=== PATIENT | female | born 1945 | race Caucasian/White ===

== ENCOUNTER → 2020-01-09 13:44 | Outpatient (BNVA) | payer MEDICARE, SELFPAY | PROVIDERS: Family Provider Family Medicine; PCP Family Medicine; Referring Provider Licensed Practical Nurse; Visit Provider Psychiatry & Neurology Neurology | DX: M54.5 Low back pain (principal); M79.605 Pain in left leg; M79.604 Pain in right leg; Z87.891 Personal history of nicotine dependence | CPT/HCPCS: 95886; 95909 ==

== ENCOUNTER 2020-01-26 08:30 | Outpatient (CLI) | payer MEDICARE, SELFPAY ==
[2020-01-11 08:35] LABS: INR 0.97 (0.8-1.2)
--- NOTE | 2020-01-26 09:22 | CT_ITS ---
WS: [id number] CT MYELOGRAM LUMBAR SPINE HISTORY: Low back pain TECHNIQUE: Contiguous 2.5 mm axial imaging performed from T12 through the mid sacral level. Bone and soft tissue windows reviewed. Sagittal and coronal reformats are submitted and reviewed. DLP: 1807.[address] scans at [facility] use at least one of these dose optimization techniques: automat ed exposure control; mA and/or kV adjustment per patient size (includes targeted exams where dose is matched to clinical indication); or iterative reconstruction. COMPARISON: MRI lumbar spine 10/12/2019 Mild RIGHT lateral curvature of the lumbar spine. Disc spaces are well preserved. Osteopenia with no fractures. Advanced facet joint arthropathy from L3-4 to L5-S1. Conus tapers normally and ends near t he L1 level. Less than 2 mm anterolisthesis of L4. L1-L2: Mild annular disc bulging with no stenosis. L2-L3: Mild annular disc bulging. No significant stenosis. L3-L4: Moderate annular disc bulging and mild ligamentum flavum hypertrophy. There is very slight enc roachment upon the subarticular recesses. No significant stenosis. L4-L5: Diffuse annular disc bulging and osteophytosis. Advanced facet arthropathy with ligamentum fla vum hypertrophy. Thecal sac is being significantly narrowed in a trefoil diameter. There is at least moderate to severe central with moderate bilateral subarticular recess and mild bilateral foraminal s tenosis. Nerve roots are becoming clumped centrally in the thecal sac due to small caliber thecal sac . L5-S1: Mild annular disc bulging. No significant stenosis. Moderate atherosclerosis within the abdominal aorta. No aneurysm. Prior cholecystectomy. CT/CT lumbar spine w con [id number] IMPRESSION: 1. Mild RIGHT convex curvature lumbar spine with increase in lordosis. 2. Moderate to severe central with moderate bilateral subarticular recess sten osis and mild bilateral foraminal stenosis at L4-5. 3. Minimal disc encroachment of into the subarticular recesses at L3-4.
--- NOTE | 2020-01-26 09:22 | IR_ITS ---
WS: [id number] LUMBAR MYELOGRAM HISTORY: low back pain COMPARISON: None available. FLUOROSCOPY TIME: 1.5 minutes. Procedure, risks and complications were explained to the patient. Risks including bleeding, infection , headaches, allergic reaction and seizures. Consent has been obtained. With the patient in prone position the skin over the lumbar region is cleansed with ChloraPrep and an esthetized with lidocaine. 22-gauge spinal needle is inserted into the thecal sac at the appropriate level determined by fluoroscopy. Omnipaque 240; 12 ml is injected slowly under fluoroscopy with no co mplications. Needle bevel is perpendicular to the longitudinal fibers of the dura. Stylet is reinsert ed prior to removal of the needle. Patient tolerated the procedure well. Patient will proceed to CT f or further evaluation. Degenerative rotoscoliosis with convexity and curvature to the RIGHT. Bones are diffusely osteopenic. L4 anterolisthesis by 2 mm. Facet joint arthropathy is moderate at L4-5 and L5-S1. L4 anterolisthesis by 3.3 mm on upright positioning. With flexion anterolisthesis is 3.9 mm and exten sergei 4.8 mm. IR/IR myelogram sp lumbar [id number] IMPRESSION: 1. Uncomplicated lumbar myelogram. CT lumbar myelogram report to follow. 2. Degenerative rotoscoliosis with convexity to the RIGHT. 3. L4 anterolisthesis by 3.3 mm on upright imaging. No definite instability.
[2020-01-26] MEDS: iohexol 240 mg/mL 50 mL Btl INTRATHECA (10:35)
== END 2020-01-26 08:31 | disposition home or self-care (01) ==
LOC: RADWPI 08:33
PROVIDERS: Family Provider Family Medicine; PCP Family Medicine; Visit Provider Licensed Practical Nurse
DX: M51.17 Intervertebral disc disorders with radiculopathy, lumbosacral region (principal); M48.061 Spinal stenosis, lumbar region without neurogenic claudication; I70.0 Atherosclerosis of aorta; I48.91 Unspecified atrial fibrillation
CPT/HCPCS: 62304; 72120; 72132; 85610

== ENCOUNTER 2020-02-06 06:00 | Outpatient (RCR) | payer MEDICARE, SELFPAY | END 2020-02-20 23:59 | disposition home or self-care (01) | LOC: APT 06:00 | PROVIDERS: Family Provider Family Medicine; PCP Family Medicine; Referring Provider Licensed Practical Nurse; Visit Provider Licensed Practical Nurse | DX: M51.17 Intervertebral disc disorders with radiculopathy, lumbosacral region (principal) | CPT/HCPCS: 97110; 97162 ==

== ENCOUNTER → 2020-02-07 10:15 | Outpatient (BNVA) | payer MEDICARE, SELFPAY | PROVIDERS: Family Provider Family Medicine; PCP Family Medicine; Referring Provider Licensed Practical Nurse; Visit Provider Anesthesiology Pain Medicine | DX: M48.062 Spinal stenosis, lumbar region with neurogenic claudication (principal); M47.816 Spondylosis without myelopathy or radiculopathy, lumbar region; M51.17 Intervertebral disc disorders with radiculopathy, lumbosacral region; M46.00 Spinal enthesopathy, site unspecified; Z79.891 Long term (current) use of opiate analgesic | CPT/HCPCS: 99205 ==

== ENCOUNTER → 2020-02-15 11:39 | Outpatient (BNVA) | payer MEDICARE, SELFPAY | PROVIDERS: Family Provider Family Medicine; PCP Family Medicine; Visit Provider Anesthesiology Pain Medicine | DX: M48.062 Spinal stenosis, lumbar region with neurogenic claudication (principal); M51.17 Intervertebral disc disorders with radiculopathy, lumbosacral region | CPT/HCPCS: 12032; 64483; 64484; 64493; J1040; J2001; J3490 ==

== ENCOUNTER 2020-02-21 06:00 | Outpatient (RCR) | payer MEDICARE, SELFPAY | END 2020-03-21 23:59 | disposition home or self-care (01) | LOC: APT 06:00 | PROVIDERS: Family Provider Family Medicine; PCP Family Medicine; Referring Provider Licensed Practical Nurse; Visit Provider Licensed Practical Nurse | DX: M51.17 Intervertebral disc disorders with radiculopathy, lumbosacral region (principal) | CPT/HCPCS: 97110 ==

== ENCOUNTER → 2020-04-26 09:34 | Outpatient (BNVA) | payer MEDICARE, SELFPAY | PROVIDERS: PCP Family Medicine; Visit Provider Anesthesiology Pain Medicine | DX: M54.5 Low back pain (principal); M51.17 Intervertebral disc disorders with radiculopathy, lumbosacral region | CPT/HCPCS: 64483; 64484; J1040; J2001; J3490 ==

== ENCOUNTER → 2020-06-14 09:23 | Outpatient (BNVA) | payer MEDICARE, SELFPAY | PROVIDERS: PCP Family Medicine; Visit Provider Anesthesiology Pain Medicine | DX: M48.062 Spinal stenosis, lumbar region with neurogenic claudication (principal); M51.17 Intervertebral disc disorders with radiculopathy, lumbosacral region; M47.816 Spondylosis without myelopathy or radiculopathy, lumbar region; M46.00 Spinal enthesopathy, site unspecified | CPT/HCPCS: 99213 ==

== ENCOUNTER → 2020-07-01 12:34 | Outpatient (BNVA) | payer MEDICARE, SELFPAY | PROVIDERS: PCP Family Medicine; Visit Provider Anesthesiology Pain Medicine | DX: M51.17 Intervertebral disc disorders with radiculopathy, lumbosacral region (principal) | CPT/HCPCS: 64483; 64484; J1040; J3490 ==

== ENCOUNTER → 2020-07-15 10:40 | Outpatient (BNVA) | payer MEDICARE, SELFPAY | PROVIDERS: PCP Family Medicine; Visit Provider Anesthesiology Pain Medicine | DX: M48.062 Spinal stenosis, lumbar region with neurogenic claudication (principal); M47.816 Spondylosis without myelopathy or radiculopathy, lumbar region; M51.17 Intervertebral disc disorders with radiculopathy, lumbosacral region; M46.00 Spinal enthesopathy, site unspecified; Z79.891 Long term (current) use of opiate analgesic | CPT/HCPCS: 99213 ==

== ENCOUNTER → 2020-09-03 11:12 | Outpatient (BNVA) | payer MEDICARE, SELFPAY | PROVIDERS: PCP Family Medicine; Visit Provider Family Medicine | DX: K21.9 Gastro-esophageal reflux disease without esophagitis (principal); M79.601 Pain in right arm; M79.602 Pain in left arm | CPT/HCPCS: 80053; 85025; 85651; 86038; 86140; 86431 ==

== ENCOUNTER → 2020-09-23 13:00 | Outpatient (BNVA) | payer MEDICARE, SELFPAY | PROVIDERS: PCP Family Medicine; Visit Provider Surgery | DX: Z20.828 Contact with and (suspected) exposure to other viral communicable diseases (principal) | CPT/HCPCS: 87635 ==

== ENCOUNTER 2020-09-26 08:39 | Day surgery (SDC) | payer MEDICARE, SELFPAY ==
[2020-09-24 10:10] VITALS: BMI 29.1
[2020-09-26] MEDS: sodium chloride 0.9% 1,000 ML 30 ML IV (09:04)
[2020-09-26 09:07] VITALS: BP 178/77; PULSE 67; RESP 18; TEMP 36.9; O2SAT 98
--- NOTE | 2020-09-26 09:24 | W.PM.OPSUD ---
Surgery/Procedure H&P Update DATE OF PROCEDURE: September 26, 2020 DATE H&P PERFORMED: 09/09/20 H&P UPDATE INFORMATION: I have reviewed H&P completed within last 30 days, I have examined patient prior to procedure and No changes to prior documentation PREOP DIAGNOSIS: GERD PLANNED PROCEDURE: Operation Date: 09/26/20 09:30 Proposed Procedures p EGD 74036 K21.9(Not Applicable) - Keven Bravo MD
--- NOTE | 2020-09-26 09:30 | ANES.PREANE2 ---
Pre-Anesthetic Assessment Pre-Anesthetic Assessment: Height/Weight: Height 1.65 m Weight 79.379 kg Temp Pulse Resp BP Pulse Ox 98.4 F 67 18 178/77 98 09/26/20 09:07 09/26/20 09:07 09/26/20 09:07 09/26/20 09:07 09/26/20 09:07 Preop Diagnosis: GERD Proposed Procedure: Operation Date: 09/26/20 09:30 Proposed Procedures p EGD 90068 K21.9(Not Applicable) - Keven Bravo MD Familial anesthetic complications: None Was Beta Mono taken within 24 hours: N/A Last intake: Intake Last Liquid Date 09/25/20 Last Liquid Time 20:00 Last Solid Date 09/25/20 Last Solid Time 20:00 Social: Social History: No alcohol and No tobacco Exam: Pre-Anes Outpt Exam: alert, oriented x 3, clear to auscultation bilaterally and regular rate & rhythm Airway: Cervical ROM: WNL MP: 2 Dentition: False CV/HEM: CV/HEM: Afib, Angina (Stable) and HTN Comments: 2019 stress test - negative fo rishcemia, EF 54% Event holterl monitor - isolated PVCs GI: GI: GERD and Hiatus hernia Anesthetic Plan: ASA status: 2 Anesthesia: MAC Risk of > 500 ml blood loss (7ml/kg in children): No Meds/Allergies Current Medications: Current Medications Generic Name Dose Route Start Last Admin Trade Name Freq PRN Reason Stop Dose Admin Sodium Chloride 1,000 mls @ 30 ml s/hr 09/26/20 08:45 09/26/20 09:04 Sodium Chloride 0.9% IV 09/27/20 08:44 30 mls/hr .Q24H IRA Administration PFSH Anesthesia PFSH: Medical History Atrial fibrillation Essential (primary) hypertension GERD (gastroesophageal reflux disease) Intervertebral disc disorder with radiculopathy of lumbosacral region Lumbar stenosis with neurogenic claudication Vitamin D deficiency Surgical History H/O esophagogastroduodenoscopy H/O hernia repair H/O lumpectomy H/O: hysterectomy History of appendectomy History of cholecystectomy History of colonoscopy (~2014) History of knee replacement (~03/2012) Left Family History Mother Diabetes Father Pancreatic cancer Sister Pancreatic cancer Social History Smoking and tobacco status: former smoker Alcohol intake: current Alcohol intake frequency: 0-2 Drinks per Day Alcohol type: wine Household members: spouse Marital status: Current occupational status: retired History of recent travel: No Data Anesthesia Cardiac Studies: No Data to Display
[2020-09-26 10:04] VITALS: BP 152/86; PULSE 77; RESP 18; TEMP 36.2; O2SAT 100
--- NOTE | 2020-09-26 10:40 | ANE.PACU2 ---
Inpatient post-anesthesia follow up: Airway intact: Yes Vital signs: Temperature 97.1 F Pulse Rate 77 Respiratory Rate 18 Blood Pressure 152/86 Pulse Oximetry 100 Oxygen Delivery Me thod Room Air Oxygen Flow Rate Fraction of Inspir ed Oxygen Hydration adequate: Yes Nausea and vomiting: No Pain level: 1 Mental status: Baseline
== END 2020-09-26 10:43 | disposition home or self-care (01) ==
PROVIDERS: PCP Family Medicine; Visit Provider Surgery
PROC: 0DJ08ZZ Inspection of Upper Intestinal Tract, Via Natural or Artificial Opening Endoscopic (ICD-10-PCS; CPT 43235; principal; 2020-09-26 09:30)
DX: K21.9 Gastro-esophageal reflux disease without esophagitis (principal); K22.2 Esophageal obstruction; K29.70 Gastritis, unspecified, without bleeding; I48.91 Unspecified atrial fibrillation; I10 Essential (primary) hypertension; Z87.891 Personal history of nicotine dependence
CPT/HCPCS: 12345; 43239; 88305; J2704; J7030

== ENCOUNTER → 2020-10-01 15:26 | Outpatient (BNVA) | payer MEDICARE, SELFPAY | PROVIDERS: PCP Family Medicine; Visit Provider Orthopaedic Surgery | DX: M54.5 Low back pain (principal) | CPT/HCPCS: 72114 ==

== ENCOUNTER → 2020-10-28 15:56 | Outpatient (BNVA) | payer MEDICARE, SELFPAY | PROVIDERS: PCP Family Medicine; Visit Provider Orthopaedic Surgery | DX: Z20.828 Contact with and (suspected) exposure to other viral communicable diseases (principal); Z01.812 Encounter for preprocedural laboratory examination | CPT/HCPCS: 87635 ==

== ENCOUNTER 2020-11-04 08:35 | Inpatient (IN) | payer MEDICARE, SELFPAY ==
[2020-10-31 11:00] VITALS: BMI 29.9
--- NOTE | 2020-10-31 11:20 | ANES.PREANE2 ---
Pre-Anesthetic Assessment Pre-Anesthetic Assessment: Height/Weight: Height 1.65 m Weight 81.647 kg Preop Diagnosis: lumbar spondylosithesis Proposed Procedure: Operation Date: 11/04/20 07:00 Proposed Procedures p L4/5 PLIF 24811, 32047, 25967, 01720, 75315, 70365 M43.16(Not Applicable) - Kar Wei, DO Familial anesthetic complications: None Social: Social History: No alcohol and No tobacco Exam: Pre-Anes Outpt Exam: alert, oriented x 3, clear to auscultation bilaterally and regular rate & rhythm Airway: Cervical ROM: WNL MP: 2 Dentition: False CV/HEM: CV/HEM: Afib and HTN Comments: negagtive stress test in 2018, EF 54% Saw Dr. Murdock in September for surgical clearance Isolated PVCs GI: GI: Hiatus hernia Anesthetic Plan: ASA status: 4 Anesthesia: General Risk of > 500 ml blood loss (7ml/kg in children): No PFSH Anesthesia PFSH: Medical History Atrial fibrillation Essential (primary) hypertension GERD (gastroesophageal reflux disease) Intervertebral disc disorder with radiculopathy of lumbosacral region Lumbar stenosis with neurogenic claudication Vitamin D deficiency Surgical History H/O esophagogastroduodenoscopy (09/26/20) H/O hernia repair H/O lumpectomy H/O: hysterectomy History of appendectomy History of cholecystectomy History of colonoscopy (~2014) History of knee replacement (~03/2012) Left Family History Mother Diabetes Father Pancreatic cancer Sister Pancreatic cancer Social History Smoking and tobacco status: former smoker Alcohol intake: current Alcohol intake frequency: 0-2 Drinks per Day Alcohol type: wine Household members: spouse Marital status: Current occupational status: retired History of recent travel: No Data Anesthesia Cardiac Studies: No Data to Display
[2020-11-04] VITALS (20 sets, daily range): BP systolic 109–182; BP diastolic 65–94; PULSE 53–111; RESP 14–20; TEMP 36.2–36.7; O2SAT 92–100
--- NOTE | 2020-11-04 | SCC_ITS ---
Procedure Done: 1. L4/5 Interbody fusion with posterolateral fusion 2. Instrumentation L4/5 3. Cage at L4/5 4. Laminectomy L4 5. use of autograft from same incision 6. allograft 7. Bone marrow aspirate from pedicle 35.6 seconds of fluoroscopic guidance, for a cumulative dose of 59.47 mGy, was provided to Dr. Wei by the radiology department. C-arm images of the lumbar spine were saved for the patient's permanent record. JEOVANNY
--- NOTE | 2020-11-04 | XR_ITS ---
WS: [id number] XR lumbar spine 2-3V* [id number] REASON FOR EXAM: SPONDYLOLISTHESIS FINDINGS: Bilateral pedicle screws placed at L4-L5 with interbody fusion device within the interspace of L4-L5. Surgical appliances are in proper position and alignment. The lumbar spine are in proper alignment. XR/XR lumbar spine 2-3V* [id number] IMPRESSION: Lumbar spine fusion as above.
[2020-11-04] MEDS: sodium chloride 0.9% 1,000 ML 30 ML IV (06:30)
--- NOTE | 2020-11-04 06:44 | P.ANESUD_ITS ---
Pre-Anesthetic Update Pre-Anesthetic Assessment: Date of Surgery/Procedure: 11/04/20 Preop Lisa gnosis: lumbar spondylosithesis Proposed Procedure: Operation Date: 11/04/20 07:00 Proposed Procedures p L4/5 PLIF 45049, 46943, 71591, 82309, 15401, 19264 M43.16(Not Applicable) - Kar Wei, DO Any changes to Pre-Anesthetic Assessment?: No Last Intake: Intake Last Liquid Date 11/03/20 Last Liquid Time 22:30 Last Solid Date 11/03/20 Last Solid Time 15:00 Vitals: Temperature 97.6 F 11/04/20 06:12 Temperature Source Temporal Artery S can 11/04/20 06:12 Pulse Rate 67 11/04/20 06:12 Respiratory Rate 18 11/04/20 06:12 Blood Pressure 182/94 11/04/20 06:12 Blood Pressure Niya n 123 11/04/20 06:12 Pulse Oximetry 97 11/04/20 06:12 Oxygen Delivery Me thod 11/04/20 06:12 Exam: Pre-Anes Outpt Exam: alert, oriented x 3, clear to auscultation bilaterally and regular rate & rhythm Cardiac Studies: No Data to Display
--- NOTE | 2020-11-04 06:54 | PM.HP ---
Providers/Chief Complaint Primary Care Provider: Fidelia Thomson DO Chief Complaint: Spondylolisthesis History of Present Illness Abbie Teresa is a 75 year old female This is a new 75 year old female who presents to the clinic today for low back pain. Her spouse is with her today. She is here to address her low back pain that radiates into her left leg. Her pain is a 6/10 today. She states that her back pain started about one year ago. She has went to pain management with in six months. She received three sets of injections to her lower back with no relief the first time. The second time she got relief for four weeks. The third time was no relief at all. She also had formal physical therapy in the [facility] with no relief. X rays were obtained in the clinic today. Associated symptoms: Denies abdominal pain, chills, fever(s), nausea or vomiting Review of Systems Narrative: General ROS: negative for weight changes, fever ENT ROS: negative for nasal congestion, drainage or bleeding, sore throat, dysphagia or ear pain Eyes: PERRL Hematological and Lymphatic ROS: negative for swollen glands or abnormal bleeding Endocrine ROS: negative for polyuria/polydpsia or new changes in weight Respiratory ROS: negative for cough, shortness of breath, or wheezing Cardiovascular ROS: negative for chest pain or dyspnea on exertion Gastrointestinal ROS: negative for reflux, abdominal pain, change in bowel habits, or black or bloody stools Musculoskeletal ROS: negative for back pain, neck pain, or joint pain or swelling except for current problem Neurological ROS: negative for TIA or stoke symptoms Skin: no rashes Medications/Allergies Home Medications Medication Instructions Recorded Confirmed Last Taken Type cholecalciferol (vitamin D3) 125 5,000 unit PO DAILY cap 12/05/19 11/04/20 11/03/20 History mcg (5,000 unit) capsule clonidine HCl 0.1 mg tablet 0.1 mg PO TID PRN #30 tab 01/11/20 11/04/20 Unknown Rx acetaminophen 500 mg tablet 500 mg PO Q6H PRN 03/06/20 11/04/20 11/03/20 History ibuprofen 200 mg capsule 200 mg PO Q6H PRN 03/06/20 11/04/20 Unknown History tramadol 50 mg tablet 50 mg PO BID PRN #60 tab 06/14/20 11/04/20 09/23/20 Rx metoprolol tartrate 25 mg tablet 12.5 mg PO BID #60 tab 07/17/20 11/04/20 11/04/20 Rx fluorouracil 5 % topical cream 1 applic TOPICAL BID 14 Days #40 gm 08/07/20 11/04/20 Unknown Rx pantoprazole [Protonix] 40 mg PO DAILY 42 Days tab 09/26/20 11/04/20 11/04/20 Rx Allergies Allergy/AdvReac Type Severity Reaction Status Date / Time adhesive tape AdvReac Mild RASH IF Verified 10/01/20 15:13 LEFT ON TOO LONG lisinopril AdvReac ADR-Cough Verified 10/01/20 15:13 PFSH Acute PFSH: Medical History Atrial fibrillation Essential (primary) hypertension GERD (gastroesophageal reflux disease) Intervertebral disc disorder with radiculopathy of lumbosacral region Lumbar stenosis with neurogenic claudication Vitamin D deficiency Surgical History H/O esophagogastroduodenoscopy (09/26/20) H/O hernia repair H/O lumpectomy H/O: hysterectomy History of appendectomy History of cholecystectomy History of colonoscopy (~2014) History of knee replacement (~03/2012) Left Family History Mother Diabetes Father Pancreatic cancer Sister Pancreatic cancer Social History Smoking and tobacco status: former smoker Alcohol intake: current Alcohol intake frequency: 0-2 Drinks per Day Alcohol type: wine Household members: spouse Marital status: Current occupational status: retired History of recent travel: No Vitals/I&O/Wt Last Vital Signs Temp 97.6 F 11/04/20 06:12 Pulse 67 11/04/20 06:12 Resp 18 11/04/20 06:12 BP 182/94 11/04/20 06:12 Pulse Ox 97 11/04/20 06:12 Physical Exam Narrative: EXAM NARRATIVE: CONSTITUTIONAL: The patient is a normal appearing [] in no apparent distress. GENERAL: Patient in no acute distress. CARDIAC: Regular rate and rhythm. CHEST: Normal inspiratory effort, normal respiratory rate. ABDOMEN: Soft and nontender. SKIN: Clear, warm and intact. NEURO?PSYCH: The patient is alert and oriented to person, place and time. Sensorv /SILT Motor StrengthShoulder abduction C5 5/5Wrist extension C6 5/5Elbow extension C7 5/5Hand Python Django Developer C8 5/5Finger abduction T15/5 Radial/ Ulnar/ Median n intact LowerSensory (SILT)Motor StrengthHin flexion L2/3Ant/inner thigh 5/5Hip adduction L2/3 5/5Knee extension L4 Lat thigh, 5/5Toe dorsiflexion L5 5/5Ankle dorsiflexion L5/ A12Lnvsoec flexion S1 5/5 DTRBleeps 2+Triceps 2+Brachioradialis 2+Patellar 2+Achilles 2+ MUSCULOSKELETAL: [] UPPEREXTREMITIES: The patient had full active ROM in fingers, wrist, elbow, and shoulder. The patient demonstrated ability to fully flex/extend/abduct/adduct fingers, make ok sign, cross 2nd/3rd digits, extend 1st digit fully.. Radial pulse 2+, CR<2 seconds. LOWER EXTREMITIES: Pt has full, active ROM of toes, ankle, knee, and hip. Dorsalis pedis/posterior tibialis pulses 2+, CR<2 seconds. SPINE: Skin warm, dry, intact. A&P Additional A&P Information L4-5 spondylolisthesis she is failed conservative therapy plan is to do a L4-5 posterior lumbar interbody fusion. Attestations Medical Necessity Statement*: Failed conservative therapy. Coding Level of Care Code Acute Dispatch Associate for Kristopher Maria
--- NOTE | 2020-11-04 06:57 | W.PM.OPSUD ---
Surgery/Procedure H&P Update DATE OF PROCEDURE: November 04, 2020 DATE H&P PERFORMED: 11/04/20 H&P UPDATE INFORMATION: I have reviewed H&P completed within last 30 days, I have examined patient prior to procedure and No changes to prior documentation PREOP DIAGNOSIS: lumbar spondylosithesis PLANNED PROCEDURE: Operation Date: 11/04/20 07:00 Proposed Procedures p L4/5 PLIF 58099, 31711, 60082, 98729, 80911, 52889 M43.16(Not Applicable) - Kar Wei DO
[2020-11-04] MEDS: heparin, porcine 1,000 unit/mL INJ 10 mL 10000 UNIT IRRIGATION (07:42)
--- NOTE | 2020-11-04 08:41 | SUR.OPER ---
4333 - Pt's family (Pat) updated on surgery porgress and pt status via the home phone.
--- NOTE | 2020-11-04 09:46 | SUR.OPER ---
0945 - [facility] updated on surgery progress and pt status via his phone.
--- NOTE | 2020-11-04 10:21 | PM.OP ---
Operative Report Date of procedure: November 04, 2020 Pre-op Diagnosis: lumbar spondylosithesis Post-op diagnosis: same Procedure Done: 1. L4/5 Interbody fusion with posterolateral fusion 2. Instrumentation L4/5 3. Cage at L4/5 4. Laminectomy L4 5. use of autograft from same incision 6. allograft 7. Bone marrow aspirate from pedicle Surgeon: Kar Wei Anesthesia: General Estimated blood loss (mL): 150 Condition: stable Disposition: PACU Procedure: 1. L4/5 Interbody fusion with posterolateral fusion 2. Instrumentation L4/5 3. Cage at L4/5 4. Laminectomy L4 5. use of autograft from same incision 6. allograft 7. Bone marrow aspirate from pedicle Patient was brought to the operative suite placed in the prone position after undergoing anesthesia patient had neuro monitoring attached no issues throughout the entire case. Patient was prepped and draped normal sterile fashion skin incision was made over the L4-5 level subperiosteal dissection was made from L4-L5 bilaterally out to the tips of the transverse processes. Retractors were placed pedicle screws were placed at L4 and L5 bilaterally prior to placing the left L5 pedicle screw bone marrow aspirate was taken using the region of cell kit. Once the once the bone marrow aspirate was taken then pedicle screw was placed pedicle screw technique was used by using a drill followed by gearshift followed by placing the screw 1 screws were placed there confirmed to be in a preposition AP and lateral fluoroscopy I once this was completed then microscope was brought and laminectomies performed at L4 with partial facetectomy bilaterally this was done using high-speed drill this bone was collected from the high-speed drill through the suction. The ligament flavum was taken down and the facet was partially taken out on the left side nerve retractors placed disc was identified. And then mnoae used up to size 12. The monae were used with pituitary downgoing curettes to clean the disc base out. The ostium fibers and sponge was packed into the front of the disc base. Then a Lizemores cage was packed with bone graft and placed into the disc base is confirmed with improved position under C-arm guidance. Then rods were attached to the screws once the screws were attached to the rods and torqued down then bone graft was placed after decorticating the lateral gutters. This was autograft allograft osteoamp. Wounds were irrigated prior to this and then the wound was closed with 0 Vicryl skin was closed with 2-0 Vicryl, Monocryl still and glue sterile dressings were applied.
--- NOTE | 2020-11-04 10:22 | SUR.PHASEI ---
PT AWAKE BUT QUICKLY BACK TO SLEEP PT MOVES ALL EXT TO COMMAND, VSS GOOD RESP EFFORT PT ON RA TRIAL.
[2020-11-04] MEDS: fentaNYL 50 mcg/mL INJ 2mL IVP (10:31)
[2020-11-04] MEDS: HYDROcodone-acetaminophen 5-325 mg Tablet PO ×2 (11:24→19:28)
--- NOTE | 2020-11-04 11:29 | PM.CONSULT ---
Providers/Reason For Consult Consulting Physican/Specialty*: Gary Jesus MD, hospitalist Reason for Consult*: Medical management Attending Physician: Kar Wei DO Primary Care Provider: Fidelia Thomson DO History of Present Illness History of Present Illness Abbie Teresa is a 75 year old female who underwent L4, 5 fusion with cage instrumentation this morning for lower back pain and sciatic pain. She tolerated surgery well without any complication. I have been asked to see her in medical consultation for medical management. Patient is very sleepy at this time as she is directly postoperative, but she is able to answer some questions and do some review of systems. I discussed her case with the surgeon, reviewed records as well as interviewed the patient. Currently she denies any shortness of breath or chest pain. She does have some lower back pain and the nurses getting some medication for this currently. Review of Systems General: Reports: 10 or more systems reviewed and unremarkable except in HPI and below Const: Denies: fever(s) Eyes: Denies: change in vision ENMT: Denies: throat pain Card: Denies: chest pain Resp: Denies: dyspnea GI: Denies: abdominal pain : Denies: flank pain Musc: Reports: back pain; Denies: neck pain Skin/Breast: Denies: rash Neuro: Denies: headache(s) Psych: Reports: other (Reports she has had some paresthesias on her left, prior to surgery ); Denies: anxiety Endo: Denies: polyuria Geoff/Lymph: Denies: easy bruising All/Imm: Denies: urticaria Meds/Allergies Home Medications and Allergies Home Medications Medication Instructions Recorded Confirmed Last Taken Type cholecalciferol (vitamin D3) 125 5,000 unit PO DAILY cap 12/05/19 11/04/20 11/03/20 History mcg (5,000 unit) capsule clonidine HCl 0.1 mg tablet 0.1 mg PO TID PRN #30 tab 01/11/20 11/04/20 Unknown Rx acetaminophen 500 mg tablet 500 mg PO Q6H PRN 03/06/20 11/04/20 11/03/20 History ibuprofen 200 mg capsule 200 mg PO Q6H PRN 03/06/20 11/04/20 Unknown History tramadol 50 mg tablet 50 mg PO BID PRN #60 tab 06/14/20 11/04/20 09/23/20 Rx metoprolol tartrate 25 mg tablet 12.5 mg PO BID #60 tab 07/17/20 11/04/20 11/04/20 Rx fluorouracil 5 % topical cream 1 applic TOPICAL BID 14 Days #40 gm 08/07/20 11/04/20 Unknown Rx pantoprazole [Protonix] 40 mg PO DAILY 42 Days tab 09/26/20 11/04/20 11/04/20 Rx Allergies Allergy/AdvReac Type Severity Reaction Status Date / Time adhesive tape AdvReac Mild RASH IF Verified 10/01/20 15:13 LEFT ON TOO LONG lisinopril AdvReac ADR-Cough Verified 10/01/20 15:13 Current Medications Current Medications Generic Name Dose Route Start Last Admin Trade Name Freq PRN Reason Stop Dose Admin Hydrocodone Bitart/Acetaminophen 1 - 2 tab 11/04/20 10:32 11/04/20 11:24 Hydrocodone-Acetaminophen 5-325 Mg Tablet PO 2 tab Q4H PRN Administration MODERATE TO SEVERE PAIN PFSH Acute PFSH: Medical History Atrial fibrillation Essential (primary) hypertension GERD (gastroesophageal reflux disease) Intervertebral disc disorder with radiculopathy of lumbosacral region Lumbar stenosis with neurogenic claudication Vitamin D deficiency Surgical History H/O esophagogastroduodenoscopy (09/26/20) H/O hernia repair H/O lumpectomy H/O: hysterectomy History of appendectomy History of cholecystectomy History of colonoscopy (~2014) History of knee replacement (~03/2012) Left Family History Mother Diabetes Father Pancreatic cancer Sister Pancreatic cancer Social History Smoking and tobacco status: former smoker Alcohol intake: current Alcohol intake frequency: 0-2 Drinks per Day Alcohol type: wine Household members: spouse Marital status: Current occupational status: retired History of recent travel: No Vitals/I&O/Wt Last Vital Signs Temp 97.2 F L 11/04/20 10:45 Pulse 69 11/04/20 10:45 Resp 18 11/04/20 10:45 BP 146/65 11/04/20 10:45 Pulse Ox 98 11/04/20 10:45 11/03/20 11/04/20 11/04/20 22:59 06:59 14:59 Intake Total 1360 / 1360 Output Total 170 / 170 Balance 1190 / 1190 Physical Exam Narrative: EXAM NARRATIVE: General exam is a sleepy white female, in no apparent distress, able to wake up and answer a few questions. HEENT: Pupils equally round. Oropharynx clear. Neck is supple no lymphadenopathy or thyromegaly Cardiovascular regular rate and rhythm without murmur, no S3 or S4 Lungs clear without any wheezing or crackles Back: Not visualized. Nurse who visualized incision upon receiving the patient reports it is clean and dry. This occurred just minutes prior to my arrival. Abdomen is soft nontender with positive bowel sounds. Binder was in place demonstrates no Solorzano Extremities no cyanosis clubbing or edema Skin no rash Neuro no focal deficits, moving all 4 extremities, normal dorsiflexion bilateral lower extremities. Data Other Data: Other data: Laboratory from September 03 were reviewed, and normal including CBC and CMP. Covid testing - October 28 Lumbar spine film demonstrates fusion L4-5 with instrumentation which I reviewed myself A&P Assessment and plan (1) Fusion of lumbar spine: Directly postoperative, doing well PT to start later today. Status: Acute (2) Essential (primary) hypertension: Continue metoprolol Currently on as needed clonidine. We will continue and monitor closely Cardiac diet Status: Chronic (3) Atrial fibrillation: I suspect this was paroxysmal atrial fibrillation. Will need to review with patient further when she is more awake. She is not on anticoagulation, and appears to be in sinus rhythm per exam. Check EKG Status: Acute Qualifiers: Atrial fibrillation type: unspecified Qualified Code(s): I48.91 - Unspecified atrial fibrillation (4) GERD (gastroesophageal reflux disease): Continue Protonix Status: Acute Additional A&P Information Thank you for this consultation SCDs for DVT prophylaxis as directly postoperative from spinal surgery. Lovenox to start tomorrow. Full code Check laboratory tomorrow Consult Attestations Medical Necessity Statement: As per primary Time Spent in Patient Care: Greater than 35 minutes Coding Level of Care Code Acute Social Media Project Manager for Chg Fwd Diagnoses Fusion of lumbar spine M43.26 Essential (primary) hypertension I10 Atrial fibrillation I48.91 Atrial fibrillation type: unspecified GERD (gastroesophageal reflux disease) K21.9
--- NOTE | 2020-11-04 11:40 | ECG_ITS ---
[facility] Test Date: 2020-11-04 Pat Name: Abbie Teresa Department: Room: 259 Gender: Female Winding Rack Operator: : [id number] Requested By: Gary Price Order Number: [id number] Jumana MD: Tabby Murdock M.D. Measurements Intervals [place] Rate: 60 P: 52 NE: 152 QRS: 9 QRSD: 99 T: 37 QT: 429 QTc: 429 Interpretive Statements SINUS RHYTHM MODERATE T-WAVE ABNORMALITY, CONSIDER ANTEROLATERAL ISCHEMIA [-0.1+ mV T WAVE IN V3-V6] Compared to ECG 10/21/2018 17:55:48 T-wave abnormality now present Possible ischemia now present Electronically Signed On 11-05-2020 20:11:05 ENVIRONMENTAL DEPARTMENT MANAGER by Tabby Murdock M.D. [id number]
--- NOTE | 2020-11-04 15:03 | ANE.PACU2 ---
Inpatient post-anesthesia follow up: Airway intact: Yes Vital signs: Temperature 97.9 F Pulse Rate 76 Respiratory Rate 16 Blood Pressure 114/71 Pulse Oximetry 96 Oxygen Delivery Me thod Nasal Cannula Oxygen Flow Rate 3 Fraction of Inspir ed Oxygen Hydration adequate: Yes Nausea and vomiting: No Pain level: 2 Mental status: Baseline
[2020-11-04] MEDS: metoprolol tartrate 25 mg Tablet 12.5 MG PO (17:42)
[2020-11-04] MEDS: docusate sodium 100 mg Capsule PO (17:42)
[2020-11-05] VITALS (7 sets, daily range): BP systolic 117–131; BP diastolic 70–80; PULSE 70–87; RESP 18; TEMP 36.4–37; O2SAT 92–96
[2020-11-05 02:30] LABS: Basophils % 0.3 %; Hematocrit 39.6 % (37.0-47.0); Hemoglobin 12.9 g/dL (11.5-15.3); Lymphocytes # 0.8 10^3/uL (0.8-4.8); Lymphocytes % 6.7 %; Mean Corpuscular HGB Conc 32.6 g/dL (30.0-36.0); Mean Corpuscular Hemoglobin 29.5 pg (28.0-34.0); Mean Corpuscular Volume 90.6 fL (81-99); Mean Platelet Volume 11.4 fL (7.4-10.4); Monocytes # 0.8 10^3/uL (0.2-0.9); Monocytes % 6.7 %; Neutrophils # 9.88 10^3/uL (1.8-7.7); Nucleated Red Blood Cells % 0 %; Platelet Count 213 10^3/cmm (130-400); Red Blood Count 4.37 10^6/uL (4.1-5.3); White Blood Count 11.5 10^3/uL (4.0-10.0)
[2020-11-05 02:48] LABS: Alanine Aminotransferase 16 U/L (0-33); Albumin Level 3.6 g/dL (3.5-5.2); Alkaline Phosphatase 63 IU/L (35-105); Anion Gap 12.3 (5-19); Aspartate Amino Transferase 35 U/L (0-32); Blood Urea Nitrogen 14 mg/dL (8-23); Calcium 8.9 mg/dL (8.5-10.5); Carbon Dioxide 30 mmol/L (22-29); Chloride 102 mmol/L (98-107); Globulin 2.4 g/dL (1.3-4.6); Glucose 121 mg/dL (65-115); Osmolality Calculated 292 mOsm/kg (285-295); Potassium 4.3 mmol/L (3.5-5.1); Sodium 140 mmol/L (136-145); Total Bilirubin 0.4 mg/dL (0.15-1.2)
[2020-11-05] MEDS: HYDROcodone-acetaminophen 5-325 mg Tablet PO ×3 (03:51→22:16)
[2020-11-05] MEDS: enoxaparin 40 mg/0.4 mL Syringe SUBCUT (06:36)
--- NOTE | 2020-11-05 07:51 | PM.PN ---
Subjective Subjective: Interval history: Abbie reports she has ago quite a bit of back pain. Otherwise she is doing okay. She was able to stand briefly yesterday. Medications: Reviewed: Yes Vitals/I&O/Wt Last Vital Signs Temp 98.0 F 11/05/20 07:36 Pulse 74 11/05/20 07:36 Resp 18 11/05/20 07:36 BP 124/72 11/05/20 07:36 Pulse Ox 94 11/05/20 07:36 11/04/20 11/05/20 11/05/20 22:59 06:59 14:59 Intake Total 300 / 1660 60 / 1720 Output Total 326 / 496 Balance -26 / 1164 60 / 1224 Physical Exam Narrative: EXAM NARRATIVE: General exam conversant and in no apparent distress Cardiovascular regular rate and rhythm without murmur, no S3 or S4 Lungs clear without any wheezing or crackles Abdomen is soft nontender with positive bowel sounds. Binder was in place Extremities no cyanosis clubbing or edema Neuro no focal deficits, moving all 4 extremities, normal dorsiflexion bilateral lower extremities. Data : 11/05/20 02:00 11/05/20 02:00 Other data: EKG from this admission demonstrates sinus rhythm A&P Assessment and plan (1) Fusion of lumbar spine: Postoperative day #1, doing well Continue physical therapy Status: Acute (2) Essential (primary) hypertension: Continue metoprolol Currently on as needed clonidine. Blood pressure currently controlled Cardiac diet Status: Chronic (3) Atrial fibrillation: I suspect this was paroxysmal atrial fibrillation at some point in the past. EKG demonstrates sinus rhythm currently. Status: Acute Qualifiers: Atrial fibrillation type: unspecified Qualified Code(s): I48.91 - Unspecified atrial fibrillation (4) GERD (gastroesophageal reflux disease): Continue Protonix Status: Acute Additional A&P Information Thank you for this consultation Lovenox for DVT prophylaxis Full code No need for laboratory tomorrow Discharge planning per orthopedic spine surgery Attestations Medical Necessity Statement*: As per primary Coding Level of Care Code Acute Wave Soldering Machine Operator for Chg Fwd Diagnoses Fusion of lumbar spine M43.26 Essential (primary) hypertension I10 Atrial fibrillation I48.91 Atrial fibrillation type: unspecified GERD (gastroesophageal reflux disease) K21.9
[2020-11-05] MEDS: pantoprazole DR 40 mg Tablet PO (08:31)
[2020-11-05] MEDS: metoprolol tartrate 25 mg Tablet 12.5 MG PO ×2 (08:31→17:31)
[2020-11-05] MEDS: docusate sodium 100 mg Capsule PO ×2 (08:31→17:31)
[2020-11-05] MEDS: cholecalciferol (vitamin D3) 5,000 unit Tablet 5000 UNIT PO (08:32)
--- NOTE | 2020-11-05 09:05 | PC.CHAP ---
Pastoral Care Encounter/Spiritual Assessment Type of Contact [] Declined american sign language teacher visit [] Patient/Family/Request visit [] Outpatient visit [] Follow-up visit [] Physician referral [] Code/Alert [] Routine visit [] Staff referral [] Actively dying [] Patient sleeping [] Family support [] [] Out of room [] Palliative care [] [] Receiving care in room [] Pre-surgical visit [] Trauma [] Long length of stay [] ICU visit [] Other: Relational/Emotional Strength [x]x Patient feels connected with others/family/visitors/staff [] Distress [] Loneliness/isolation [] Abandonment Spirituality of Patient [x] Person of Kell [] Attends Muslim of their Kell [] Believes in Prayer [] Reads Bible or Jainism materials [] There are Spiritual issues to be addressed Daylight Driller Interventions [x] Prayer [] Active listening [] Non-anxious presence [] Spiritual/emotional support [] Crisis/trauma care [] Spiritual counseling [] Bereavement support [] Provided bereavement packet [] Provided Bible/devotional materials [] Provided toy/stuffed animal, coloring book to patient or family member [] Provided Communion [] Anointing/Ashley [] Salvation [x] Completed spiritual assessment [] Other: Impact on Illness or Injury [] Angry [] Fearful [] Anxious [] Often cries [] Exhaustion [] Unable to work [] Unable to attend catholic [] Unable to walk/stand [] Unable to read [] Unable to drive [] Unable to eat/drink [] Unable to sleep [] Unable to be with family [] Patient intubated [] Other: Summary feeling great Time spent with patient 10 min
--- NOTE | 2020-11-05 09:35 | PM.PN ---
Subjective Subjective: Interval history: Patient is doing well. Patient is still having same and pain in difficulty with ambulation Vitals/I&O/Wt Last Vital Signs Temp 98.0 F 11/05/20 07:36 Pulse 74 11/05/20 07:36 Resp 18 11/05/20 07:36 BP 124/72 11/05/20 07:36 Pulse Ox 94 11/05/20 07:36 11/04/20 11/05/20 11/05/20 22:59 06:59 14:59 Intake Total 300 / 1660 60 / 1720 150 / 150 Output Total 326 / 496 200 / 200 Balance -26 / 1164 60 / 1224 -50 / -50 Physical Exam Narrative: EXAM NARRATIVE: Para 5 strength bilateral lower extremities sensation intact. Data : 11/05/20 02:00 11/05/20 02:00 A&P Additional A&P Information Pain and ambulation issues at this point will need another day to evaluate if she can be discharged home. She is postop day #1 for L4-5 posterior lumbar interbody fusion. Plan will be for her to get up with therapy hopefully discharge tomorrow. Attestations Medical Necessity Statement*: Patient is having pain and difficulty in ambulation would like to have more physical therapy to evaluate for discharge. Coding Level of Care Code Acute Financial Accounting Manager for Kristopher Maria
--- NOTE | 2020-11-05 15:26 | PC.NURSE ---
attempted to titrate oxygen down per orders. pt on 1LNC, stating 92%. titrated pt on RA and upon reassessment, pt stats were at 75%. put O2 back on pt at 2LNC. pt stating at 93%.
[2020-11-06] VITALS (11 sets, daily range): BP systolic 111–173; BP diastolic 69–90; PULSE 64–87; RESP 16–19; TEMP 36.6–37.2; O2SAT 92–96
[2020-11-06] MEDS: ketorolac 30 mg/mL INJ IVP ×3 (00:10→18:30)
[2020-11-06] MEDS: cloNIDine 0.1 mg Tablet PO (00:13)
[2020-11-06] MEDS: enoxaparin 40 mg/0.4 mL Syringe SUBCUT (06:09)
[2020-11-06] MEDS: HYDROcodone-acetaminophen 5-325 mg Tablet PO ×4 (08:32→23:31)
[2020-11-06] MEDS: docusate sodium 100 mg Capsule PO ×2 (08:33→18:30)
[2020-11-06] MEDS: cholecalciferol (vitamin D3) 5,000 unit Tablet 5000 UNIT PO (08:33)
[2020-11-06] MEDS: metoprolol tartrate 25 mg Tablet 12.5 MG PO ×2 (08:33→18:30)
[2020-11-06] MEDS: pantoprazole DR 40 mg Tablet PO (08:33)
--- NOTE | 2020-11-06 08:41 | P.PN_ITS ---
Subjective Subjective: Interval history: Abbie reports she is doing okay. Pain is less. Able to do more with physical therapy yesterday. Medications: Reviewed: Yes Vitals/I&O/Wt Last Vital Signs Temp 98.3 F 11/06/20 07:51 Pulse 82 11/06/20 07:51 Resp 16 11/06/20 07:51 BP 158/90 11/06/20 07:51 Pulse Ox 92 11/06/20 07:51 11/05/20 11/06/20 11/06/20 22:59 06:59 14:59 Output Total 200 / 700 300 / 1000 Balance -200 / -550 -300 / -850 Physical Exam Narrative: EXAM NARRATIVE: General exam no distress Cardiovascular regular rate and rhythm without murmur, no S3 or S4 Lungs clear without any wheezing or crackles Abdomen is soft nontender with positive bowel sounds. Binder was in place Extremities no cyanosis clubbing or edema Neuro no foot drop Data : 11/05/20 02:00 11/05/20 02:00 A&P Assessment and plan (1) Fusion of lumbar spine: Postoperative day #2, doing well Continue physical therapy Status: Acute (2) Essential (primary) hypertension: Continue metoprolol Currently on as needed clonidine. Blood pressure slightly higher at times. No changes needed however. Cardiac diet Status: Chronic (3) Atrial fibrillation: I suspect this was paroxysmal atrial fibrillation at some point in the past. Patient confirms this. EKG demonstrates sinus rhythm currently. Status: Acute Qualifiers: Atrial fibrillation type: unspecified Qualified Code(s): I48.91 - Unspecified atrial fibrillation (4) GERD (gastroesophageal reflux disease): Continue Protonix Status: Acute Additional A&P Information Thank you for this consultation Heverx for DVT prophylaxis Full code Possible discharge today per spine surgery. Attestations Medical Necessity Statement*: As per primary Coding Level of Care Code Acute Director Of Provider Relations for [facility] Fwd Diagnoses Fusion of lumbar spine M43.26 Essential (primary) hypertension I10 Atrial fibrillation I48.91 Atrial fibrillation type: unspecified GERD (gastroesophageal reflux disease) K21.9
--- NOTE | 2020-11-06 11:32 | PM.PN ---
Subjective Subjective: Interval history: pain improved but still present leg pain is gone Vitals/I&O/Wt Last Vital Signs Temp 98.3 F 11/06/20 07:51 Pulse 64 11/06/20 11:22 Resp 16 11/06/20 07:51 BP 158/90 11/06/20 07:51 Pulse Ox 92 11/06/20 11:22 11/05/20 11/06/20 11/06/20 22:59 06:59 14:59 Intake Total 560 / 560 Output Total 200 / 700 300 / 1000 Balance -200 / -550 -300 / -850 560 / 560 Physical Exam Narrative: EXAM NARRATIVE: %/5 stregth sensation intact Data : 11/05/20 02:00 11/05/20 02:00 A&P Additional A&P Information POD#2 L4/5 PLIF D/c planning recommend SNF Attestations Medical Necessity Statement*: patient needs to work with therapy and get qualified for [facility] Coding Level of Care Code Acute Bottle Packing Machine Cleaner for Millyg Crow
--- NOTE | 2020-11-06 13:46 | PC.NURSE ---
Assisted patient up to chair. 2 assists needed. Patient c/o right hip pain while in chair. At 25 minutes up in the chair the patient got herself back to bed.
--- NOTE | 2020-11-06 18:14 | PC.NURSE ---
Call placed to Dr. Wei to report patienty's increased pain in right hip when sitting upright or on BSC despite several doses of pain medicine.
[2020-11-07] VITALS (7 sets, daily range): BP systolic 133–176; BP diastolic 70–93; PULSE 66–90; RESP 16–19; TEMP 36.6–37.3; O2SAT 74–95
[2020-11-07] MEDS: HYDROcodone-acetaminophen 5-325 mg Tablet PO ×2 (04:28→11:32)
[2020-11-07] MEDS: ondansetron 2 mg/ML SDV 2 mL 4 MG IVP ×3 (04:40→16:33)
[2020-11-07] MEDS: enoxaparin 40 mg/0.4 mL Syringe SUBCUT (05:09)
[2020-11-07] MEDS: cloNIDine 0.1 mg Tablet PO (06:35)
--- NOTE | 2020-11-07 06:37 | PC.NURSE ---
SHIFT SUMMARY Has rested for intervals. Medicated X3 with po Hydrocodone for pain. Nauseated this am with small emesis. Received IV Zofran for this. Has been able to get up to BSC with one assist and says much less pain in right leg when up. Says yesterday it got to where she couldn't sit on the BSC due to the pain in her hip & leg. Was given po Clonidine this am for BP 176/91. Says sometimes her BP runs high.
--- NOTE | 2020-11-07 08:35 | P.DS_ITS ---
Discharge Providers Date of Admission: 11/04/20 08:35 Date of Discharge: November 07, 2020 Attending Provider at Admission: Kar Wei DO Attending Provider at Discharge: Kar Wei DO Primary Care Provider: Fidelia Thomson DO Diagnoses at Discharge Discharge Diagnosis (1) Fusion of lumbar spine: Status: Acute (2) Essential (primary) hypertension: Status: Chronic (3) Atrial fibrillation: Status: Acute Qualifiers: Atrial fibrillation type: unspecified Qualified Code(s): I48.91 - Unspecified atrial fibrillation (4) GERD (gastroesophageal reflux disease): Status: Acute Reason for Visit Reason for Visit: Spondylolisthesis Hospital Course Hospital Course Patient had surgery on 11/04/2020. She had a L4-5 posterior lumbar interbody fusion. Postoperatively she did well she was having postoperative pain leg pain had resolved. She had some new onset of right hip pain last night which was 11/06/2020. She will be discharged to the long term today. 11/07/2020 overall her course was uneventful. Physical Exam Narrative: EXAM NARRATIVE: Patient has 5/5 strength today she had complaints of right hip pain last night. When she goes to sit down. Discharge Data Data Completed and Pending: Completed Studies During Hospitalization Category Date Time Status XR lumbar spine 2 -3V* [id number] Routine Exams 11/04/20 Completed Vitals: Last Vital Signs Temp 98.3 F 11/07/20 06:00 Pulse 74 11/07/20 06:00 Resp 17 11/07/20 06:00 BP 176/91 11/07/20 06:35 Pulse Ox 74 L 11/07/20 06:00 Discharge Plan Discharge Patient Disposition: Home Condition: Stable Prescriptions: New hydrocodone-acetaminophen 5-325 mg Tablet 1 - 2 tab PO Q4H PRN (Reason: Moderate To Severe Pain) Qty: 40 RF: 0 enoxaparin 40 mg/0.4 mL Syringe 40 mg SUBCUT Q24H 30 Days Qty: 12 RF: 0 Continued acetaminophen 500 mg tablet 500 mg PO Q6H PRN (Reason: Pain) RF: 0 ibuprofen 200 mg capsule 200 mg PO Q6H PRN (Reason: Pain) RF: 0 cholecalciferol (vitamin D3) 5,000 unit capsule 5,000 unit PO DAILY RF: 0 clonidine HCl 0.1 mg tablet 0.1 mg PO TID PRN (Reason: hypertensive emergency) Qty: 30 RF: 0 metoprolol tartrate 25 mg tablet 12.5 mg PO BID Qty: 60 RF: 3 tramadol 50 mg tablet 50 mg PO BID PRN (Reason: pain) Qty: 60 RF: 0 fluorouracil 5 % cream 1 applic TOPICAL BID 14 Days Qty: 40 RF: 0 pantoprazole [Protonix] 40 mg tablet,delayed release (DR/EC) 40 mg PO DAILY 42 Days RF: 3 Discharge Orders: Discharge Order (Routine); Ordered 11/07/20 Ordered By: Kar Wei Discharge Diet: Advance as tolerated and Usual diet Discharge Activity: Limit activity as instructed Activity Restrictions/Additional Instructions: Thank you for choosing [facility] for your care! The following is a list of instructions, from your provider, to follow upon your discharge to ensure you have the optimal recovery from your recent injury or surgery. Follow-up care is a chambers part of your treatment and safety. Be sure to make and go to all appointments, and call your doctor if you are having problems. If you do not already have a follow-up appointment made, call Dr. Wei office in the next 1-3 days to make follow up appointment for [] weeks at [phone]. It is also a good idea to know your test results and keep a list of the medicines you take. Medications will be prescribed for you at your provider's discretion. These medications are to be used as instructed; if they are taken more often that prescribed they will not be refilled early and in most cases will not be refilled at all. > When a refill is needed,you should contact our office 2-3 business days before your prescription runs out. Medications will NOT be refilled by refrigeration service technician providers after hours! > Many pain medications contain Tylenol (Acetaminophen). Do not consume more than 4,000 mg of Tylenol per day in total with any combination o fmedications. > Pain medications can cause constipation. Please use an over the co unter stool softener as directed, while taking pain medications. Consulty our local pharmacist with questions or recommendations on stool softeners. If constipation persists, contact our office or your primary care provider. > While under our care,you are not to receive pain medications or other controlled substances from any other provider unless our office is notified and approves. Any attempts to do so will result in refusal to prescribe any further pain medications and possible dismissal from our practice. ? Your wound and/or dressing should remain clean and dry for 2 days after surgery. On postoperative day 2 (48 hours after your surgery) the dressing (if present) should be removed and it is okay to shower and get the incision wet. Pad dry afterwards. No further dressing should be required from that point on. Do not put any creams or ointments on theincision > It is normal for there to be a small amount of discharge (bloody or blood tinged) present from a surgical wound for the first 1-3days. > The wound should be examined twice a day for signs of infection. Mild redness or bruising is to be expected but indications that an infection maybe starting would include; An increase in redness, swelling, or discharge, a foul odor present around the incision, and/or a fever greater than 101 ?F ? Showering is permitted, however we ask that you do not take a bath, sit in a whirlpool / Jacuzzi, or go swimming for 1 month. For only the first 2 days after surgery, lt wilt be necessary for you to cover your wound/dressing with plastic and tape to keep it dry. ? Walking is essential for the healing process after surgery. We would like you to slowly advance your walking. This should be done on relatively flat clear ground (inside or out) or can be done on a treadmill. Remember this goal does not have to happen all at once, slowly increase your distance and duration. This can be broken into more more than one walk per day as tolerated. Patients who walk as directed after surgery rarely require Physical Therapy. In the unlikely event this issue arises your provider will direct hospital staff to make the appropriate arrangements. ? No lifting over 5 pounds {a gallon of milk) or bending/twisting until further notice. Each of these activities places an unnecessary amount of stress onto the body and can impede the delicate healing process. > Instead of bending at the waist, keep your back straight and bend at the knees. > Instead of twisting your torso, keep your back straight and turn your entire body with your feet. ? You may sleep in any position which makes you comfortable. Many patients find comfort sleeping in a reclining chair. It is not abnormal to have difficulty sleeping for the first several weeks following your surgery. We recommend trying Benadry! or Tylenol PM as directed to help with your sleeping difficulties. Both medications are over the counter and available withou tprescription. ? NO SMOKING!!! Smoking dramatically increases the probability of developing postoperative wound infections. ? Common complaints after lumbar and/or thoracic spine surgery include, but are not limited to: numbness and/or tingling in the legs, pain around the incision and surrounding tissues, muscle spasms, or stiffness of the middle to low back. Contact our office if these symptoms persist or if an acute change occurs. ? No driving for the first 3-5days, and not while taking narcotics [] until seen at your follow-up appointment and cleared. There are no restrictions for riding on short trips, however if you take a longer trip, arrangements should be made to make regular stops to get out of the vehicle and stretch . ? Swelling is an unfortunate event that will take place with any surgery and is the primary source of your postoperative discomfort. While walking and regular approved activities helps control inflammation, there are additional steps you can take to minimize swelling. > Place ice over the surgical site and surrounding tissue for twenty minutes, followed by applying a low/medium heat (heating pad) for an additional twenty minutes every 1-2 hours as needed for pain relief. > You may use of over the counter anti-inflammatory medications (Ibuprofen, Motrin, Aleve, Advil, etc) as directed on the package label. These types of medicines wm significantly reduce the amount of discomfort you experience after surgery from swelling. It should be noted that if you have and allergy to any of these medications, or a history of ulcers or kidney disease you should consult you primary care provider prior to starting these medications. Discharge Attestations Time Spent in Discharge Care*: less than 30 min Quality Metrics Clinical Quality Measures During this hospital stay, did patient experience: None Coding Level of Care Code Acute Poultry Veterinarian for Chg Fwd Diagnoses Fusion of lumbar spine M43.26 Essential (primary) hypertension I10 Atrial fibrillation I48.91 Atrial fibrillation type: unspecified GERD (gastroesophageal reflux disease) K21.9
[2020-11-07] MEDS: pantoprazole DR 40 mg Tablet PO (08:59)
[2020-11-07] MEDS: sodium chloride 0.9% 1,000 ML 100 ML IV (08:59)
[2020-11-07] MEDS: metoprolol tartrate 25 mg Tablet 12.5 MG PO (08:59)
[2020-11-07] MEDS: docusate sodium 100 mg Capsule PO (09:00)
[2020-11-07] MEDS: cholecalciferol (vitamin D3) 5,000 unit Tablet 5000 UNIT PO (09:00)
[2020-11-07 10:07] LABS: SARS Covid-2 Antigen Negative (Negative)
--- NOTE | 2020-11-07 10:20 | PC.SOCIAL ---
IMM Page 2 of IMM explained to patient. Initialed, dated, and timed and placed in chart. Copy provided to patient.
--- NOTE | 2020-11-07 11:09 | PM.PN ---
Subjective Subjective: Interval history: Some nausea this morning. Nursing facility placement is being set up. No abdominal pain Medications: Reviewed: Yes Vitals/I&O/Wt Last Vital Signs Temp 98.3 F 11/07/20 06:00 Pulse 74 11/07/20 06:00 Resp 17 11/07/20 06:00 BP 176/91 11/07/20 06:35 Pulse Ox 74 L 11/07/20 06:00 11/06/20 11/07/20 11/07/20 22:59 06:59 14:59 Intake Total 240 / 1040 200 / 1240 240 / 240 Output Total 550 / 850 300 / 1150 Balance -310 / 190 -100 / 90 240 / 240 Physical Exam Narrative: EXAM NARRATIVE: General exam no distress Cardiovascular regular rate and rhythm without murmur, no S3 or S4 Lungs clear without any wheezing or crackles Abdomen is soft nontender with positive bowel sounds. Binder was in place Extremities no cyanosis clubbing or edema Neuro no foot drop Data : 11/05/20 02:00 11/05/20 02:00 A&P Assessment and plan (1) Fusion of lumbar spine: Postoperative day #3, doing well Continue physical therapy Planning on going to skilled care today Status: Acute (2) Essential (primary) hypertension: Continue metoprolol Currently on as needed clonidine. Blood pressure slightly higher at times. No changes needed however. Cardiac diet Status: Chronic (3) Atrial fibrillation: I suspect this was paroxysmal atrial fibrillation at some point in the past. Patient confirms this. EKG demonstrates sinus rhythm currently. Status: Acute Qualifiers: Atrial fibrillation type: unspecified Qualified Code(s): I48.91 - Unspecified atrial fibrillation (4) GERD (gastroesophageal reflux disease): Continue Protonix Some nausea this morning. She was on Toradol and I will discontinue this. Zofran is being given. If can hydrate can transition to skilled care. Status: Acute Additional A&P Information Thank you for this consultation Lovenox for DVT prophylaxis Full code Likely discharge today to skilled care Attestations Medical Necessity Statement*: Per spine surgery Coding Level of Care Code Acute Engine Lathe Set Up Operator for Chg Fwd Diagnoses Fusion of lumbar spine M43.26 Essential (primary) hypertension I10 Atrial fibrillation I48.91 Atrial fibrillation type: unspecified GERD (gastroesophageal reflux disease) K21.9
[2020-11-07] MEDS: hyDRALAzine 20 mg/mL INJ 1 mL 10 MG IVP (11:55)
[2020-11-07] MEDS: promethazine 25 mg Tablet PO ×2 (11:56→16:53)
[2020-11-07 16:38] LABS: Basophils % 0.3 %; Eosinophils % 0.2 %; Hematocrit 37.3 % (37.0-47.0); Hemoglobin 12.1 g/dL (11.5-15.3); Lymphocytes # 1.1 10^3/uL (0.8-4.8); Lymphocytes % 9.7 %; Mean Corpuscular HGB Conc 32.4 g/dL (30.0-36.0); Mean Corpuscular Hemoglobin 29.2 pg (28.0-34.0); Mean Corpuscular Volume 89.9 fL (81-99); Mean Platelet Volume 10.9 fL (7.4-10.4); Monocytes # 0.7 10^3/uL (0.2-0.9); Monocytes % 6.1 %; Neutrophils # 9.29 10^3/uL (1.8-7.7); Neutrophils % 83.2 %; Nucleated Red Blood Cells % 0 %; Platelet Count 219 10^3/cmm (130-400); Red Blood Count 4.15 10^6/uL (4.1-5.3); Red Cell Distribution Width 11.7 % (12.1-15.1); White Blood Count 11.2 10^3/uL (4.0-10.0)
[2020-11-07 17:01] LABS: Alanine Aminotransferase 16 U/L (0-33); Albumin Level 3.3 g/dL (3.5-5.2); Alkaline Phosphatase 62 IU/L (35-105); Anion Gap 11.1 (5-19); Aspartate Amino Transferase 27 U/L (0-32); Blood Urea Nitrogen 17 mg/dL (8-23); Calcium 9.1 mg/dL (8.5-10.5); Carbon Dioxide 30 mmol/L (22-29); Chloride 94 mmol/L (98-107); Globulin 2.8 g/dL (1.3-4.6); Glucose 117 mg/dL (65-115); Osmolality Calculated 275 mOsm/kg (285-295); Potassium 4.1 mmol/L (3.5-5.1); Sodium 131 mmol/L (136-145); Total Bilirubin 0.5 mg/dL (0.15-1.2); Total Protein 6.1 g/dL (6.6-8.7)
== END 2020-11-07 17:19 | disposition skilled nursing facility (03) | DRG 460 ==
LOC: MEDSURG 08:35
PROVIDERS: Internal Medicine; Admitting Provider Orthopaedic Surgery; PCP Family Medicine; Visit Provider Orthopaedic Surgery
PROC: 0SG00AJ Fusion of Lumbar Vertebral Joint with Interbody Fusion Device, Posterior Approach, Anterior Column, Open Approach (ICD-10-PCS; principal; 2020-11-04 07:00)
DX: M43.16 Spondylolisthesis, lumbar region (principal); I48.0 Paroxysmal atrial fibrillation; I10 Essential (primary) hypertension; K21.9 Gastro-esophageal reflux disease without esophagitis; Z96.652 Presence of left artificial knee joint; Z87.891 Personal history of nicotine dependence; E55.9 Vitamin D deficiency, unspecified
CPT/HCPCS: 12345; 36415; 72100; 76000; 80053; 85025; 86850; 86900; 87426; 93005; 96365; 96372; 96375; 97161; 97530; C1713; C9359; J0330; J0360; J0690; J1100; J1644; J1650; J1885; J2405; J2704; J3010; J3490; J7030; Q0169

== ENCOUNTER → 2020-11-29 10:25 | Outpatient (BNVA) | payer MEDICARE, SELFPAY | PROVIDERS: PCP Family Medicine; Visit Provider Orthopaedic Surgery | DX: Z47.89 Encounter for other orthopedic aftercare (principal); M43.16 Spondylolisthesis, lumbar region; M47.816 Spondylosis without myelopathy or radiculopathy, lumbar region | CPT/HCPCS: 72100 ==

== ENCOUNTER → 2021-01-14 11:49 | Outpatient (BNVA) | payer MEDICARE, SELFPAY | PROVIDERS: PCP Family Medicine; Visit Provider Orthopaedic Surgery | DX: Z47.89 Encounter for other orthopedic aftercare (principal); M43.26 Fusion of spine, lumbar region | CPT/HCPCS: 72100 ==

== ENCOUNTER 2021-01-22 06:00 | Outpatient (RCR) | payer MEDICARE, SELFPAY | END 2021-02-19 23:59 | disposition home or self-care (01) | LOC: TPT 06:00 | PROVIDERS: PCP Family Medicine; Referring Provider Orthopaedic Surgery; Visit Provider Orthopaedic Surgery | DX: Z47.89 Encounter for other orthopedic aftercare (principal) | CPT/HCPCS: 97110; 97161; G0283 ==

== ENCOUNTER → 2021-02-21 10:55 | Outpatient (BNVA) | payer MEDICARE, SELFPAY | PROVIDERS: PCP Family Medicine; Visit Provider Orthopaedic Surgery | DX: M54.5 Low back pain; Z48.89 Encounter for other specified surgical aftercare; M43.26 Fusion of spine, lumbar region | CPT/HCPCS: 72100 ==

== ENCOUNTER → 2021-02-26 09:14 | Outpatient (BNVA) | payer MEDICARE, SELFPAY | PROVIDERS: PCP Family Medicine; Referring Provider Orthopaedic Surgery; Visit Provider Anesthesiology Pain Medicine | DX: M51.17 Intervertebral disc disorders with radiculopathy, lumbosacral region (principal); M43.26 Fusion of spine, lumbar region; M43.16 Spondylolisthesis, lumbar region; M48.062 Spinal stenosis, lumbar region with neurogenic claudication; M47.816 Spondylosis without myelopathy or radiculopathy, lumbar region; M46.00 Spinal enthesopathy, site unspecified; M19.90 Unspecified osteoarthritis, unspecified site; Z79.891 Long term (current) use of opiate analgesic | CPT/HCPCS: 99215 ==

== ENCOUNTER 2021-02-26 10:25 | Outpatient (CLI) | payer MEDICARE, SELFPAY ==
--- NOTE | 2021-02-26 10:52 | XR_ITS ---
WS: [id number] Bilateral hips. HISTORY: Osteoarthritis and hip pain. COMPARISON: No similar studies. There is very minimal narrowing of the hip joints bilaterally. Minimal sclerosis along the superior a cetabulum, bilateral. No osteophytosis. No bone destruction. XR/XR hip BI 3-4V wo/w pel [id number] IMPRESSION: Very mild bilateral hip joint osteoarthritis.
== END 2021-02-26 10:26 | disposition home or self-care (01) ==
PROVIDERS: PCP Family Medicine; Visit Provider Anesthesiology Pain Medicine
DX: M16.0 Bilateral primary osteoarthritis of hip (principal)
CPT/HCPCS: 73522

== ENCOUNTER → 2021-03-14 10:08 | Outpatient (BNVA) | payer MEDICARE, SELFPAY | PROVIDERS: PCP Family Medicine; Visit Provider Anesthesiology Pain Medicine | DX: M47.816 Spondylosis without myelopathy or radiculopathy, lumbar region (principal); M48.062 Spinal stenosis, lumbar region with neurogenic claudication; M51.17 Intervertebral disc disorders with radiculopathy, lumbosacral region; M25.552 Pain in left hip; M46.00 Spinal enthesopathy, site unspecified; Z79.891 Long term (current) use of opiate analgesic | CPT/HCPCS: 99214 ==

== ENCOUNTER 2021-03-17 08:59 | Outpatient (CLI) | payer MEDICARE, SELFPAY ==
--- NOTE | 2021-03-17 09:30 | MR_ITS ---
WS: [id number] MRI LUMBAR SPINE NONCONTRAST HISTORY: M43.26 - Fusion of spine, lumbar region COMPARISON: 10/12/2019 TECHNIQUE: Sagittal and axial multisequence imaging is submitted. Mild increase in thoracic kyphosis. Mild increase in the lumbar lordosis. New posterior fusion hardware at L4-5 since the prior examinati on. Extensive postoperative changes are noted in the soft tissues in the paraspinal region and subcut aneous soft tissues from L2 to L5. Mild disc desiccation throughout. Conus terminates normally at L1-2 disc level. L1-L2: Normal. L2-L3: Mild annular disc bulging and osteophytic ridging. Mild ligamentum flavum disease and facet ar thritis. Mild flattening of the ventral thecal sac with no significant stenosis. L3-L4: Very mild annular disc bulging and mild facet arthritis. Bilateral facet joint arthritis with only mild narrowing of the thecal sac and foramen. No interval change. L4-L5: Nerve roots are becoming clumped within the thecal sac. Large posterior laminectomy defects. M oderate facet joint arthritis encroaching into the thecal sac and RIGHT foramen. Mild bilateral debbie inal narrowing due to facet disease, osteophytes and disc. Central stenosis has improved since the de compression. L5-S1: Mild annular disc bulge. No significant stenosis or focal disc protrusion. MR/MR lumbar spine wo con* [id number] IMPRESSION: 1. New since 10/12/2019 is a posterior lumbar fusion at L4-5 with postoperativ e changes in the paravertebral soft tissues. 2. Mild resolution of the previously described central stenosis at L4-5. 3. Moderate facet joint arthropathy most significant at L4-5 resulting in mild bilateral foraminal narrowing is similar to the prior study. No focal disc pro trusion. There is mild encroachment upon the L4 nerve roots bilaterally.
== END 2021-03-17 09:00 | disposition home or self-care (01) ==
PROVIDERS: PCP Family Medicine; Visit Provider Orthopaedic Surgery
DX: M43.26 Fusion of spine, lumbar region (principal); M43.16 Spondylolisthesis, lumbar region; M48.062 Spinal stenosis, lumbar region with neurogenic claudication; M47.816 Spondylosis without myelopathy or radiculopathy, lumbar region
CPT/HCPCS: 72148

== ENCOUNTER → 2021-03-18 14:01 | Outpatient (BNVA) | payer MEDICARE, SELFPAY | PROVIDERS: PCP Family Medicine; Visit Provider Anesthesiology Pain Medicine | DX: M54.16 Radiculopathy, lumbar region (principal); M48.062 Spinal stenosis, lumbar region with neurogenic claudication; Z79.891 Long term (current) use of opiate analgesic | CPT/HCPCS: 64483; J1030; J3490 ==

== ENCOUNTER → 2021-03-26 13:08 | Outpatient (BNVA) | payer MEDICARE, SELFPAY | PROVIDERS: PCP Family Medicine; Visit Provider Anesthesiology Pain Medicine | DX: M25.552 Pain in left hip (principal); Z79.891 Long term (current) use of opiate analgesic | CPT/HCPCS: 20610; 77002 ==

== ENCOUNTER → 2021-04-02 11:09 | Outpatient (BNVA) | payer MEDICARE, SELFPAY | PROVIDERS: PCP Family Medicine; Visit Provider Anesthesiology Pain Medicine | DX: M48.062 Spinal stenosis, lumbar region with neurogenic claudication (principal); M25.552 Pain in left hip; M51.17 Intervertebral disc disorders with radiculopathy, lumbosacral region; M47.816 Spondylosis without myelopathy or radiculopathy, lumbar region; M46.00 Spinal enthesopathy, site unspecified | CPT/HCPCS: 99212; 99213 ==

== ENCOUNTER → 2021-04-09 13:22 | Outpatient (BNVA) | payer MEDICARE, SELFPAY | PROVIDERS: PCP Family Medicine; Visit Provider Nurse Practitioner Family | DX: Z01.818 Encounter for other preprocedural examination (principal); Z20.822 Contact with and (suspected) exposure to COVID-19; M77.32 Calcaneal spur, left foot | CPT/HCPCS: 73630; 87635 ==

== ENCOUNTER 2021-04-11 09:37 | Emergency (ER) | payer MEDICARE, SELFPAY ==
[2021-04-11 09:42] VITALS: BP 198/95; PULSE 73; RESP 16; TEMP 36.8; O2SAT 96; BMI 29.2
--- NOTE | 2021-04-11 09:50 | ECG_ITS ---
[facility] Test Date: 2021-04-11 Pat Name: Abbie Teresa Department: Room: Gender: Female Donations Attendant: : 1945 Requested By: Demetrius Rivas Order Number: [id number] Reading MD: MATT LUIS Measurements Intervals [place] Rate: 66 P: 35 CA: 145 QRS: -6 QRSD: 95 T: 13 QT: 387 QTc: 405 Interpretive Statements SINUS RHYTHM MODERATE VOLTAGE CRITERIA FOR LVH, CONSIDER NORMAL VARIANT [MEETS CRITERIA IN ONE OF: R(aVL), S(V1), R(V5), R(V5/V6)+S(V1)] Compared to ECG 11/04/2020 13:14:03 T-wave abnormality no longer present Possible ischemia no longer present Electronically Signed On 04-11-2021 21:19:48 CDT by MATT LUIS [email or web address]
--- NOTE | 2021-04-11 09:50 | XR_ITS ---
WS: [id number] Portable AP upright chest, 04/11/2021 Clinical Data: chest pain Comparison: PA chest, 10/21/2018. Findings: No nodules, masses or effusions are seen. The heart is normal. The pulmonary vascularity is not increased. No pneumonia or pneumothorax is seen. The aortic arch and descending aorta are tortuo us. There are monitor leads on the chest wall. XR/XR chest 1V portable [id number] Impression: Atherosclerosis.
[2021-04-11 09:53] VITALS: O2SAT 96
--- NOTE | 2021-04-11 09:54 | ED_ITS ---
HPI - Chest Pain General: Chief Complaint: Chest Pain Stated Complaint: cp Time Seen by Provider: 04/11/21 09:39 History of Present Illness: HPI narrative: 75-year-old female who was at outpatients getting a preoperative evaluation and stated she had some chest pain as well as some nausea noted her blood pressure is elevated she did had some chest pain yesterday as well she has no history of coronary artery disease. She was going to be evaluated for a back surgery to be done on Wednesday. She denied associated discomfort with exertion she denied having in this time. She has a history of atrial fibrillation she is not on any anticoagulants she is not in A. fib at this time. Patient also is complaining of epigastric right upper quadrant abdominal discomfort that correlates with her reported chest discomfort. She has been nauseous but no vomiting. This morning she took all of her antihypertensives and then took an extra half a tablet because you noted her blood pressure was still high. Still elevated on arrival here. MD complaint: chest pain and chest discomfort Onset (ago): day(s) Timing of current episode: episodic Prior episodes: Yes Onset: during rest Pain location: substernal Pain radiation: none Severity: mild Quality: tightness and heaviness Relieving factors: nothing Exacerbating factors: nothing Associated symptoms: Reports abdominal pain and nausea; Deny diaphoresis, dyspnea, fever(s), leg edema, palpitations, sense of impending doom, syncope or vomiting Treatment prior to arrival: none Review of Systems Const: Denies: fever(s) or diaphoresis ENMT: Denies: throat pain, ear or mastoid pain, nasal discharge or nasal congestion Card: Denies: palpitations or syncope Resp: Denies: dyspnea GI: Reports: abdominal pain and nausea; Denies: vomiting : Denies: flank pain, difficulty voiding, dysuria, urinary frequency or urinary urgency Skin/Breast: Denies: rash or pruritus PFSH ED PFSH: Medical History Atrial fibrillation Essential (primary) hypertension GERD (gastroesophageal reflux disease) Intervertebral disc disorder with radiculopathy of lumbosacral region Lumbar stenosis with neurogenic claudication Vitamin D deficiency Surgical History H/O esophagogastroduodenoscopy (09/26/20) H/O hernia repair H/O lumpectomy H/O: hysterectomy History of appendectomy History of cholecystectomy History of colonoscopy (~2014) History of knee replacement (~03/2012) Left Family History Mother Diabetes Father Pancreatic cancer Sister Pancreatic cancer Social History Smoking and tobacco status: former smoker Second hand smoke exposure: No Alcohol intake: current Alcohol intake frequency: 0-2 Drinks per Day Alcohol type: wine Household members: spouse Marital status: Current occupational status: retired History of recent travel: No Physical Exam Const: COMMON NORMALS: no acute distress GENERAL APPEARANCE: cooperative and comfortable ORIENTATION/CONSCIOUSNESS: Yes awake, Yes oriented to person, Yes oriented to place and Yes oriented to time HENMT: COMMON NORMALS: normocephalic, atraumatic and hearing grossly normal bilaterally HEAD & SCALP: normocephalic and atraumatic Neck/C-Spine: COMMON NORMALS: no JVD Resp: COMMON NORMALS: normal respiratory effort, No retractions, No use of accessory muscles and clear to auscultation bilaterally AUSCULTATION: clear to auscultation bilaterally Cardio: COMMON NORMALS: no JVD, regular rate, regular rhythm and No murmurs present (Cardio) RATE: regular rate RHYTHM: regular rhythm GI: COMMON NORMALS: Soft to palpation and No hepatosplenomegaly present AUSCULTATION: Yes normoactive bowel sounds PALPATION: Yes Soft to palpation, Yes Tenderness to palpation present (GI) (Epigastric right upper quadrant), No Guarding due to palpation present (GI) and Yes No hepatosplenomegaly present Extremity: COMMON NORMALS: normal to inspection, capillary refill normal, no clubbing, cyanosis or edema, no calf tenderness and no pedal edema Neuro: SENSORIUM/ORIENTATION: Yes oriented to person, Yes oriented to place and Yes oriented to time Skin: COMMON NORMALS: no rashes or lesions noted GENERAL SKIN EXAM: no rashes or lesions noted Course Vital Signs: Vital signs: Vital Signs Temperature 98.2 F 04/11/21 09:42 Pulse Rate 67 04/11/21 13:05 Respiratory Rate 19 H 04/11/21 13:05 Blood Pressure 175/92 04/11/21 13:05 Pulse Oximetry 97 04/11/21 13:05 MDM - Chest Pain MDM Narrative: Medical decision making narrative: EKG does not show anything acute chest x-ray CT of the abdomen also negative serial enzymes negative we will set her up for outpatient sestamibi stress test. Case management will call Dr. Wei's office and noted he will need to delay surgery until her cardiac work-up is complete if she has any recurrent symptoms recheck. Lab Data: Labs: Lab Results 04/11/21 04/11/21 04/11/21 Range/Units 10:03 10:03 10:03 WBC 7.8 (4.0-10.0) 10^3/ uL RBC 5.28 (4.1-5.3) 10^6/u L Hgb 15.2 (11.5-15.3) g/dL Hct 46.0 (37.0-47.0) % MCV 87.1 (81-99) fL MCH 28.8 (28.0-34.0) pg MCHC 33.0 (30.0-36.0) g/dL RDW 12.5 (12.1-15.1) % Plt Count 280 (130-400) 10^3/c mm MPV 10.6 H (7.4-10.4) fL Neut % (Auto) 71.0 % Lymph % (Auto) 19.0 % Christian % (Auto) 5.8 % Eos % (Auto) 2.7 % Baso % (Auto) 1.2 % Neut # (Auto) 5.55 (1.8-7.7) 10^3/u L Lymph # (Auto) 1.5 (0.8-4.8) 10^3/u L Christian # (Auto) 0.5 (0.2-0.9) 10^3/u L Eos # (Auto) 0.2 (0.0-0.8) 10^3/u L Baso # (Auto) 0.1 (0.0-0.1) 10^3/u L Nucleated RBC % (a uto) 0 % Nucleated RBCs # 0.0 /100WBC Sodium 138 (136-145) mmol/L Potassium 3.9 (3.5-5.1) mmol/L Chloride 102 (98-107) mmol/L Carbon Dioxide 27 (22-29) mmol/L Anion Gap 12.9 (5-19) BUN 9 (8-23) mg/dL Creatinine 0.5 (0.5-0.9) mg/dL GFR Calculation Not Reportable Glucose 110 (65-115) mg/dL Calculated Osmolal ity 285 (285-295) mOsm/k g Calcium 8.7 (8.5-10.5) mg/dL Total Bilirubin 0.4 (0.15-1.2) mg/dL AST 16 (0-32) U/L ALT 14 (0-33) U/L Alkaline Phosphata se 69 (35-105) IU/L Troponin T Baselin e 6 (0-10) ng/L Troponin T [address] [place] (0-10) ng/L Delta Troponin T (0-10) ABS# Total Protein 7.0 (6.6-8.7) g/dL Albumin 4.0 (3.5-5.2) g/dL Globulin 3.0 (1.3-4.6) g/dL Lipase (13-60) U/L 04/11/21 04/11/21 Range/Units 10:03 11:56 WBC (4.0-10.0) 10^3/ uL RBC (4.1-5.3) 10^6/u L Hgb (11.5-15.3) g/dL Hct (37.0-47.0) % MCV (81-99) fL MCH (28.0-34.0) pg MCHC (30.0-36.0) g/dL RDW (12.1-15.1) % Plt Count (130-400) 10^3/c mm MPV (7.4-10.4) fL Neut % (Auto) % Lymph % (Auto) % Christian % (Auto) % Eos % (Auto) % Baso % (Auto) % Neut # (Auto) (1.8-7.7) 10^3/u L Lymph # (Auto) (0.8-4.8) 10^3/u L Christian # (Auto) (0.2-0.9) 10^3/u L Eos # (Auto) (0.0-0.8) 10^3/u L Baso # (Auto) (0.0-0.1) 10^3/u L Nucleated RBC % (a uto) % Nucleated RBCs # /100WBC Sodium (136-145) mmol/L Potassium (3.5-5.1) mmol/L Chloride (98-107) mmol/L Carbon Dioxide (22-29) mmol/L Anion Gap (5-19) BUN (8-23) mg/dL Creatinine (0.5-0.9) mg/dL GFR Calculation Glucose (65-115) mg/dL Calculated Osmolal ity (285-295) mOsm/k g Calcium (8.5-10.5) mg/dL Total Bilirubin (0.15-1.2) mg/dL AST (0-32) U/L ALT (0-33) U/L Alkaline Phosphata se (35-105) IU/L Troponin T Baselin e (0-10) ng/L Troponin T [address] [place] 6.00 (0-10) ng/L Delta Troponin T 0 (0-10) ABS# Total Protein (6.6-8.7) g/dL Albumin (3.5-5.2) g/dL Globulin (1.3-4.6) g/dL Lipase 49 (13-60) U/L Discharge Plan Discharge Patient Disposition: Home Clinical Impression: Atypical chest pain Condition: Stable Prescriptions: New aspirin 81 mg tablet,chewable 81 mg PO DAILY Qty: 90 RF: 0 No Action acetaminophen 500 mg tablet 1,000 mg PO PRN RF: 0 ibuprofen 200 mg capsule 400 mg PO PRN RF: 0 metoprolol tartrate 25 mg tablet 12.5 mg PO BID Qty: 90 RF: 3 cholecalciferol (vitamin D3) 5,000 unit capsule 5,000 unit PO QAM RF: 0 clonidine HCl 0.1 mg tablet 0.1 mg PO TID PRN (Reason: hypertensive emergency) Qty: 30 RF: 0 hydrocodone-acetaminophen 5-325 mg tablet 1 tab PO Q4H PRN (Reason: pain) 7 Days Qty: 30 RF: 0 Protonix 20 mg Tablet,Delayed Release (Dr/Ec) 20 mg PO DAILY RF: 0 gabapentin 100 mg Capsule 100 mg PO BID RF: 0 Discharge Orders: Discharge ED (Routine); Ordered 04/11/21 Ordered By: Demetrius Sevilla Referrals: Fidelia Thomson DO [Primary Care Provider] - Discharge Diet: Usual diet Discharge Activity: Limit activity as instructed Patient Instructions: Opioid Safety Activity Restrictions/Additional Instructions: With your primary care doctor after stress test is completed. 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
--- NOTE | 2021-04-11 10:07 | CT_ITS ---
WS: [id number] CT ABDOMEN PELVIS TECHNIQUE: Contrast-enhanced CT of the abdomen and pelvis with coronal and sagittal reformatted image s. CLINICAL INFORMATION: abd pain COMPARISON: CT 8 7,018 DLP: 1421.[address] scans at [facility] use at least one of these dose optimization techniques: automat ed exposure control; mA and/or kV adjustment per patient size (includes targeted exams where dose is matched to clinical indication); or iterative reconstruction. FINDINGS: Prior postoperative changes cholecystectomy and hysterectomy. Prior appendectomy. Normal liver. Michelle l portal vein and splenic vein. Prior cholecystectomy. Normal spleen. Small esophageal hiatal hernia. 3.6 mm noncalcified nodule in the right middle lobe. Stable noncalcified nodule right lower lobe kaitlin ng the diaphragm. This is stable since 2018. Mild fatty atrophy of the pancreas. Mild thickening of the adrenal glands bilaterally unchanged. Norm al renal parenchymal enhancement. No hydronephrosis. Small right renal cyst. Sigmoid diverticulosis. No evidence of acute diverticulitis. No evidence of small or large obstructio n. Tiny fat-containing umbilical hernia. Normal caliber abdominal aorta. Aortic calcification. No free fluid in the pelvis. Pedicle screw fixation L4-5 with inter[address] fusion graft. CT/CT abdomen pelvis w con* [id number] IMPRESSION: 1. Prior postoperative changes prior cholecystectomy and hysterectomy. Prior a ppendectomy. 2. No acute findings in the abdomen or pelvis. 3. Small esophageal hiatal hernia. 4. Sigmoid diverticulosis. No evidence of acute diverticulitis 5. No significant change from previous. Notified Demetrius Sevilla DO at 04/11/2021 11:06 AM.
[2021-04-11 10:12] LABS: Basophils # 0.1 10^3/uL (0.0-0.1); Basophils % 1.2 %; Eosinophils # 0.2 10^3/uL (0.0-0.8); Eosinophils % 2.7 %; Hemoglobin 15.2 g/dL (11.5-15.3); Lymphocytes # 1.5 10^3/uL (0.8-4.8); Mean Corpuscular Hemoglobin 28.8 pg (28.0-34.0); Mean Corpuscular Volume 87.1 fL (81-99); Mean Platelet Volume 10.6 fL (7.4-10.4); Monocytes # 0.5 10^3/uL (0.2-0.9); Monocytes % 5.8 %; Neutrophils # 5.55 10^3/uL (1.8-7.7); Nucleated Red Blood Cells % 0 %; Platelet Count 280 10^3/cmm (130-400); Red Blood Count 5.28 10^6/uL (4.1-5.3); Red Cell Distribution Width 12.5 % (12.1-15.1); White Blood Count 7.8 10^3/uL (4.0-10.0)
[2021-04-11 10:25] LABS: Alanine Aminotransferase 14 U/L (0-33); Alkaline Phosphatase 69 IU/L (35-105); Anion Gap 12.9 (5-19); Aspartate Amino Transferase 16 U/L (0-32); Blood Urea Nitrogen 9 mg/dL (8-23); Calcium 8.7 mg/dL (8.5-10.5); Carbon Dioxide 27 mmol/L (22-29); Chloride 102 mmol/L (98-107); Glucose 110 mg/dL (65-115); Osmolality Calculated 285 mOsm/kg (285-295); Potassium 3.9 mmol/L (3.5-5.1); Sodium 138 mmol/L (136-145); Total Bilirubin 0.4 mg/dL (0.15-1.2)
[2021-04-11 10:27] LABS: Troponin(5th) Baseline 6 ng/L (0-10)
[2021-04-11 10:32] LABS: Lipase 49 U/L (13-60)
--- NOTE | 2021-04-11 10:37 | PC.NURSE ---
pt to CT by stretcher with tech
--- NOTE | 2021-04-11 10:44 | PC.PHAR ---
PT STATES SHE TAKES CARE OF HER OWN MEDICATIONS-PT STATES SHE NORMALLY DOESNT TAKE HER METOPROLOL TARTRATE 2 DOSES SO CLOSE TOGETHER-PT STATES SHE TOOK 12.5MG AT 7AM AND 8AM STATES SHE TOOK BECAUSE HER BP WAS HIGH-PT STATES SHE TAKES GABAPENTIN 100MG BID STATES THIS IS AN OLD RX-EXT MED HISTORY SHOWS LAST FILLED ON 06/14/20 30D/S-PT STATES SHE HASNT STARTED TAKING THE 300MGTID FILLED ON 02/26/21 30D/S
[2021-04-11 11:11] VITALS: BP 170/98; PULSE 70; RESP 22; O2SAT 97
--- NOTE | 2021-04-11 11:50 | ECG_ITS ---
[facility] Test Date: 2021-04-11 Pat Name: Abbie Teresa Department: Room: Gender: Female Director Of Food And Nutrition Services: : 1945 Requested By: Demetrius Rivas Order Number: [id number] Reading MD: MATT LUIS Measurements Intervals [place] Rate: 62 P: 35 AK: 156 QRS: -12 QRSD: 96 T: 19 QT: 393 QTc: 401 Interpretive Statements SINUS RHYTHM Compared to ECG 04/11/2021 09:46:50 No significant changes Electronically Signed On 04-11-2021 21:23:10 CDT by MATT LUIS [email or web address] [email or web address] community hospitalSend the Trendc[facility]/store/NU/[id number] f
[2021-04-11 12:20] LABS: Troponin 5 2HR Delta 0 ABS# (0-10)
[2021-04-11 13:05] VITALS: BP 175/92; PULSE 67; RESP 19; O2SAT 97
--- NOTE | 2021-04-11 13:24 | DCPLANNER ---
configuration management manager had message to schedule an outpatient stress test for patient. configuration management manager faxed signed order to centralized scheduling. configuration management manager will call for appointment information. configuration management manager was also asked to call the office of Dr. Wei to let them know that patient was seen in the ER for chest pain, the ER physician is ordering a stress test for patient. ER physician wante Dr. Wei to be aware since patient is scheduled for surgery next week. configuration management manager called the ortho clinic, spoke with Nicole and explained this to her, she stated that she would speak with Dr. Wei.
--- NOTE | 2021-04-16 14:11 | DCPLANNER ---
Patient has a follow up appointment scheduled for Wednesday, May 07, 2021 at 11:30 for an out patient stress test. Centralized scheduling will call patient with appointment information.
--- NOTE | 2021-06-18 08:12 | DCPLANNER ---
Patient had an outpatient stress test scheduled for 05.05.21 - was cancelled.
== END 2021-04-11 13:05 | disposition home or self-care (01) ==
PROVIDERS: Emergency Provider Family Medicine; PCP Family Medicine
DX: R07.89 Other chest pain (principal); I48.91 Unspecified atrial fibrillation; I10 Essential (primary) hypertension; Z87.891 Personal history of nicotine dependence
CPT/HCPCS: 36415; 71045; 74177; 80053; 83690; 84484; 85025; 93005; 99284; Q9967

== ENCOUNTER → 2021-05-15 13:05 | Outpatient (BNVA) | payer MEDICARE, SELFPAY | PROVIDERS: PCP Family Medicine; Visit Provider Orthopaedic Surgery | DX: Z01.812 Encounter for preprocedural laboratory examination (principal); Z20.822 Contact with and (suspected) exposure to COVID-19 | CPT/HCPCS: 87635 ==

== ENCOUNTER 2021-05-21 07:28 | Day surgery (SDC) | payer MEDICARE, SELFPAY ==
[2021-05-12 13:14] VITALS: BMI 29.2
--- NOTE | 2021-05-12 13:35 | ANES.PREANE2 ---
Pre-Anesthetic Assessment Pre-Anesthetic Assessment: Height/Weight: Height 1.63 m Weight 77.111 kg Preop Diagnosis: lumbar spondylosithesis Proposed Procedure: Operation Date: 05/21/21 15:40 Proposed Procedures p L4/5 decompression with revision 51802 36054 M48.06 M54.9(Not Applicable) - Kar Wei DO Familial anesthetic complications: None Social: Social History: No alcohol and No tobacco Exam: Pre-Anes Outpt Exam: alert, oriented x 3, clear to auscultation bilaterally and regular rate & rhythm Airway: Cervical ROM: WNL MP: 3 Dentition: False CV/HEM: CV/HEM: Afib (not on anticoagulation d/t easy bruising. On metoprolol) and HTN Comments: Atypical chest pain in ER last month, cardiac work up negative. Thought to be related to hiatal hernia as pain was very similar. No further episodes of chest pain after ER visit Anesthetic Plan: ASA status: 2 Anesthesia: General Risk of > 500 ml blood loss (7ml/kg in children): No PFSH Anesthesia PFSH: Medical History Atrial fibrillation Essential (primary) hypertension GERD (gastroesophageal reflux disease) Intervertebral disc disorder with radiculopathy of lumbosacral region Lumbar stenosis with neurogenic claudication Vitamin D deficiency Surgical History H/O esophagogastroduodenoscopy (09/26/20) H/O hernia repair H/O lumpectomy H/O: hysterectomy History of appendectomy History of cholecystectomy History of colonoscopy (~2014) History of knee replacement (~03/2012) Left Family History Mother Diabetes Father Pancreatic cancer Sister Pancreatic cancer Social History Smoking and tobacco status: former smoker Second hand smoke exposure: No Alcohol intake: current Alcohol intake frequency: 0-2 Drinks per Day Alcohol type: wine Household members: spouse Marital status: Current occupational status: retired History of recent travel: No Data Anesthesia Cardiac Studies: No Data to Display
[2021-05-21] VITALS (8 sets, daily range): BP systolic 157–187; BP diastolic 68–99; PULSE 64–83; RESP 14–20; TEMP 36.4–36.9; O2SAT 93–100
[2021-05-21] MEDS: sodium chloride 0.9% 1,000 ML 30 ML IV (07:54)
--- NOTE | 2021-05-21 08:16 | P.ANESUD_ITS ---
Pre-Anesthetic Update Pre-Anesthetic Assessment: Date of Surgery/Procedure: 05/21/21 Preop Lisa gnosis: radiculopathy Proposed Procedure: Operation Date: 05/21/21 09:05 Proposed Procedures p L4/5 decompression with revision 15609 53213 M48.06 M54.9(Not Applicable) - Kar Wei, DO Any changes to Pre-Anesthetic Assessment?: No Last Intake: Intake Last Liquid Date 05/21/21 Last Liquid Time 06:00 Last Solid Date 05/20/21 Last Solid Time 22:00 Vitals: Temperature 98.4 F 05/21/21 07:36 Temperature Source Temporal Artery S can 05/21/21 07:36 Pulse Rate 64 05/21/21 07:36 Respiratory Rate 18 05/21/21 07:36 Blood Pressure 187/99 05/21/21 07:36 Blood Pressure Niya n 128 05/21/21 07:36 Pulse Oximetry 97 05/21/21 07:36 Oxygen Delivery Me thod 05/21/21 07:36 Exam: Pre-Anes Outpt Exam: alert, oriented x 3, clear to auscultation bilaterally and regular rate & rhythm Cardiac Studies: No Data to Display
--- NOTE | 2021-05-21 08:23 | PM.HP ---
Providers/Chief Complaint Primary Care Provider: Fidelia Thomson DO Chief Complaint: L4/5 decompression with revision History of Present Illness Abbie Teresa is a 76 year old female [facility] complains of low back pain Onset: years ago Duration: constant Characteristics: aching Severity: 05/01 Location: lower back Radiating symptoms: left foot and ankle Aggravating factors: over use Alleviating factors: rest Neuro deficits: patient denies numbness, patient does have tingling, weakness in the left foot, patient denies incontinence of bowel/bladder, saddle anesthesia. Prior tx: injection in the the lumbar, and tomorrow injections in the hip Associated symptoms: Reports muscle weakness (left foot); Denies abdominal pain, chills, fever(s), nausea or vomiting left foot drop Review of Systems Narrative: General ROS: negative for weight changes, fever ENT ROS: negative for nasal congestion, drainage or bleeding, sore throat, dysphagia or ear pain Eyes: PERRL Hematological and Lymphatic ROS: negative for swollen glands or abnormal bleeding Endocrine ROS: negative for polyuria/polydpsia or new changes in weight Respiratory ROS: negative for cough, shortness of breath, or wheezing Cardiovascular ROS: negative for chest pain or dyspnea on exertion Gastrointestinal ROS: negative for reflux, abdominal pain, change in bowel habits, or black or bloody stools Musculoskeletal ROS: negative for back pain, neck pain, or joint pain or swelling except for current problem Neurological ROS: negative for TIA or stoke symptoms Skin: no rashes Medications/Allergies Home Medications Medication Instructions Recorded Confirmed Last Taken Type cholecalciferol (vitamin D3) 125 5,000 unit PO QAM cap 12/05/19 05/21/21 05/21/21 06:00 History mcg (5,000 unit) capsule clonidine HCl 0.1 mg tablet 0.1 mg PO TID PRN #30 tab 01/11/20 05/12/21 Unknown Rx acetaminophen 500 mg tablet 1,000 mg PO PRN 03/06/20 05/21/21 05/20/21 13:00 History ibuprofen 200 mg capsule 400 mg PO PRN 03/06/20 05/12/21 Unknown History metoprolol tartrate 25 mg tablet 12.5 mg PO BID #90 tab 01/14/21 05/21/21 05/21/21 06:00 Rx AFO #1 ea 04/15/21 05/06/21 Unknown Rx hydrocodone 5 mg-acetaminophen 325 1 tab PO Q4H PRN 7 Days #30 tab 05/09/21 05/21/21 05/20/21 23:00 Rx mg tablet Allergies Allergy/AdvReac Type Severity Reaction Status Date / Time insect venom Allergy Intermediate swelling Verified 05/21/21 07:34 at the site of sting adhesive tape AdvReac Mild RASH IF Verified 05/21/21 07:34 LEFT ON TOO LONG lisinopril AdvReac ADR-Cough Verified 05/21/21 07:34 PFSH Acute PFSH: Medical History Atrial fibrillation Essential (primary) hypertension GERD (gastroesophageal reflux disease) Intervertebral disc disorder with radiculopathy of lumbosacral region Lumbar stenosis with neurogenic claudication Vitamin D deficiency Surgical History H/O esophagogastroduodenoscopy (09/26/20) H/O hernia repair H/O lumpectomy H/O: hysterectomy History of appendectomy History of cholecystectomy History of colonoscopy (~2014) History of knee replacement (~03/2012) Left Family History Mother Diabetes Father Pancreatic cancer Sister Pancreatic cancer Social History Smoking and tobacco status: former smoker Second hand smoke exposure: No Alcohol intake: current Alcohol intake frequency: 0-2 Drinks per Day Alcohol type: wine Household members: spouse Marital status: Current occupational status: retired History of recent travel: No Vitals/I&O/Wt Last Vital Signs Temp 98.4 F 05/21/21 07:36 Pulse 64 05/21/21 07:36 Resp 18 05/21/21 07:36 BP 187/99 05/21/21 07:36 Pulse Ox 97 05/21/21 07:36 Physical Exam Narrative: EXAM NARRATIVE: CONSTITUTIONAL: The patient is a normal appearing [] in no apparent distress. GENERAL: Patient in no acute distress. CARDIAC: Regular rate and rhythm. CHEST: Normal inspiratory effort, normal respiratory rate. ABDOMEN: Soft and nontender. SKIN: Clear, warm and intact. NEURO?PSYCH: The patient is alert and oriented to person, place and time. Sensorv /SILT Motor StrengthShoulder abduction C5 5/5Wrist extension C6 5/5Elbow extension C7 5/5Hand [employer] C8 5/5Finger abduction T15/5 Radial/ Ulnar/ Median n intact LowerSensory (SILT)Motor StrengthHin flexion L2/3Ant/inner thigh 5/5Hip adduction L2/3 5/5Knee extension L4 Lat thigh, 5/5Toe dorsiflexion L5 5/5Ankle dorsiflexion L5/ W18Zfoqaot flexion S1 5/5 DTRBleeps 2+Triceps 2+Brachioradialis 2+Patellar 2+Achilles 2+ MUSCULOSKELETAL: [] UPPEREXTREMITIES: The patient had full active ROM in fingers, wrist, elbow, and shoulder. The patient demonstrated ability to fully flex/extend/abduct/adduct fingers, make ok sign, cross 2nd/3rd digits, extend 1st digit fully.. Radial pulse 2+, CR<2 seconds. LOWER EXTREMITIES: Pt has full, active ROM of toes, ankle, knee, and hip. Dorsalis pedis/posterior tibialis pulses 2+, CR<2 seconds. SPINE: Skin warm, dry, intact. A&P Assessment and plan (1) Fusion of lumbar spine: Left foot drop Status: Acute Attestations Medical Necessity Statement*: failed conservative tx Coding Level of Care Code Acute Job Hand for Chg Fwd Diagnoses Fusion of lumbar spine M43.26
--- NOTE | 2021-05-21 08:27 | W.PM.OPSUD ---
Surgery/Procedure H&P Update DATE OF PROCEDURE: May 21, 2021 DATE H&P PERFORMED: 05/21/21 PREOP DIAGNOSIS: radiculopathy PLANNED PROCEDURE: Operation Date: 05/21/21 09:05 Proposed Procedures p L4/5 decompression with revision 71980 [id number] M48.06 M54.9(Not Applicable) - Kar Wei DO
[2021-05-21] MEDS: vancomycin 1,000 MG SDV 1000 MG XX (09:49)
--- NOTE | 2021-05-21 10:25 | P.OP_ITS ---
Operative Report Date of procedure: May 21, 2021 Pre-op Diagnosis: Foot drop; L4, L5 radiculopathy Post-op diagnosis: same Procedure Done: 1. Removal of deep hardware from spine 2. Revison L4/5 laminectomy partial facetecomy Surgeon: Kar Wei Anesthesia: General Estimated blood loss (mL): 25 Condition: stable Disposition: PACU Procedure: 1. Removal of deep hardware from spine 2. Revison L4/5 laminectomy partial facetecomy Patient was brought to the operative suite placed in the prone position after undergoing anesthesia. All areas impingement were well-padded. Patient was then prepped and draped in normal sterile fashion. Skin incision made using previous skin incision. Dissection was made down to the L4-5 level. The previous L4-5 screws were identified. Once screws were identified the end caps were removed yanna was removed then the pedicle screws were removed. Once hardware is moved careful dissection was made using Bovie to identify bone around the L4-5 facet. More lamina was taken down with a high-speed bur and Kerrison. More of the medial aspect of the L4-5 facet was taken down medially. The L4 nerve was traced through the L4-5 foramen. The frame was opened up. Along the edge of the pedicle help past the lateral edge of the pedicle the nerve was traced. The nerve did have significant bruising. Tender was then brought to the more distal aspect of facet joint the L5 nerve was identified as it passed around the L5 pedicle this was completely opened up as well. The L4 and L5 were directly visualized and the microscope and found to be completely intact and completely freed up. Wounds were then irrigated and surgical was use d to coagulate bleeding vancomycin powder was placed and wound was closed with strata fix suture of both the thoracolumbar fascia and the skin. The skin was then closed with nylon. Silverlon dressing was placed and patient was transferred to the PACU in stable condition.
[2021-05-21] MEDS: HYDROcodone-acetaminophen 5-325 mg Tablet 1 TAB PO (11:20)
--- NOTE | 2021-05-21 14:30 | ANE.PACU2 ---
Inpatient post-anesthesia follow up: Airway intact: Yes Vital signs: Temperature 97.8 F Pulse Rate 77 Respiratory Rate 17 Blood Pressure 157/68 Pulse Oximetry 96 Oxygen Delivery Me thod Nasal Cannula Oxygen Flow Rate 2 Fraction of Inspir ed Oxygen Hydration adequate: Yes Nausea and vomiting: No Pain level: 2 Mental status: Baseline
== END 2021-05-21 12:46 | disposition home or self-care (01) ==
PROVIDERS: PCP Family Medicine; Visit Provider Orthopaedic Surgery
PROC: (CPT 63005; principal; 2021-05-21 08:45)
DX: M54.16 Radiculopathy, lumbar region (principal); I48.91 Unspecified atrial fibrillation; I10 Essential (primary) hypertension; K21.9 Gastro-esophageal reflux disease without esophagitis; Z87.891 Personal history of nicotine dependence
CPT/HCPCS: 63042; J0330; J0690; J1100; J2250; J2370; J2405; J2550; J2704; J3010; J3370; J3490; J7030

== ENCOUNTER → 2021-07-15 10:04 | Outpatient (BNVA) | payer MEDICARE, SELFPAY | PROVIDERS: PCP Family Medicine; Visit Provider Orthopaedic Surgery | DX: Z47.89 Encounter for other orthopedic aftercare (principal); Z98.1 Arthrodesis status | CPT/HCPCS: 72100 ==

== ENCOUNTER 2021-10-14 11:01 | Outpatient (CLI) | payer MEDICARE, SELFPAY ==
--- NOTE | 2021-10-14 11:00 | MM_ITS ---
WS: [id number] BILATERAL SCREENING DIGITAL MAMMOGRAM WITH CAD HISTORY: screening mammogram COMPARISON: 05/14/2020 and 11/08/2019 Bilateral CC and MLO views submitted. Computer aided detection analyzed. Breast composition: There are scattered areas of fibroglandular density. No suspicious masses, microc alcifications or architectural distortion. Benign calcifications scattered within each breast. MM/[place] [id number] IMPRESSION: BI-RADS: 2-Benign FOLLOW UP: 1 Year Follow-up
== END 2021-10-14 11:02 | disposition home or self-care (01) ==
LOC: RADSHAW 11:08
PROVIDERS: PCP Family Medicine; Visit Provider Family Medicine
DX: Z12.31 Encounter for screening mammogram for malignant neoplasm of breast (principal)
CPT/HCPCS: 77067

== ENCOUNTER → 2021-10-21 10:41 | Outpatient (BNVA) | payer MEDICARE, SELFPAY | PROVIDERS: PCP Family Medicine; Visit Provider Orthopaedic Surgery | DX: M43.16 Spondylolisthesis, lumbar region (principal) | CPT/HCPCS: 72100 ==

== ENCOUNTER 2021-10-29 06:00 | Outpatient (RCR) | payer MEDICARE, SELFPAY | END 2021-11-21 23:59 | disposition home or self-care (01) | LOC: TPT 06:00 | PROVIDERS: PCP Family Medicine; Referring Provider Orthopaedic Surgery; Visit Provider Orthopaedic Surgery | DX: M48.061 Spinal stenosis, lumbar region without neurogenic claudication (principal) | CPT/HCPCS: 97110; 97163 ==

== ENCOUNTER → 2021-11-26 12:05 | Outpatient (BNVA) | payer MEDICARE, SELFPAY | PROVIDERS: PCP Family Medicine; Visit Provider Nurse Practitioner | DX: R39.9 Unspecified symptoms and signs involving the genitourinary system (principal) | CPT/HCPCS: 81000 ==

== ENCOUNTER 2022-02-03 14:55 | Outpatient (CLI) | payer MEDICARE, SELFPAY ==
--- NOTE | 2022-02-03 15:10 | XR_ITS ---
WS: [id number] Right knee, 3 views, 02/03/2022 Clinical Data: chronic right knee pain Comparison: None. Findings: No fractures or dislocations are seen. There is medial joint compartment narrowing with spurs of the medial and lateral femoral condyles and the medial tibial plateau. The posterior patella shows spurri ng. The patella is intact. The soft tissues are unremarkable. XR/XR knee RT 3V* [id number] Impression: Moderate osteoarthritis of the right knee. Kellgren-Rickey Classification: grade 3 (moderate): moderate multiple osteoph ytes, definite narrowing of joint space and some sclerosis and possible deformi ty of bone ends
== END 2022-02-03 14:56 | disposition home or self-care (01) ==
LOC: RAD 14:58
PROVIDERS: PCP Family Medicine; Visit Provider Family Medicine
DX: M17.11 Unilateral primary osteoarthritis, right knee (principal); M25.561 Pain in right knee
CPT/HCPCS: 73562

== ENCOUNTER → 2022-03-03 12:50 | Outpatient (BNVA) | payer MEDICARE, SELFPAY | PROVIDERS: PCP Family Medicine; Referring Provider Family Medicine; Visit Provider Orthopaedic Surgery | DX: M17.11 Unilateral primary osteoarthritis, right knee (principal); Z87.891 Personal history of nicotine dependence | CPT/HCPCS: 20610; 99203; J0702; J3490 ==

== ENCOUNTER → 2022-07-09 13:46 | Outpatient (BNVA) | payer MEDICARE, SELFPAY | PROVIDERS: PCP Family Medicine; Visit Provider Internal Medicine Cardiovascular Disease | DX: R07.9 Chest pain, unspecified (principal); I10 Essential (primary) hypertension; I48.91 Unspecified atrial fibrillation; Z87.891 Personal history of nicotine dependence | CPT/HCPCS: 93005; 99214 ==

== ENCOUNTER 2022-12-18 11:39 | Outpatient (CLI) | payer MEDICARE, SELFPAY ==
--- NOTE | 2022-12-18 11:46 | MM_ITS ---
WS: [id number] VIEWS: MLO and CC views both breasts. 3D digital tomosynthesis is also included in this exam. Comparison made with prior exam of 09/24/2016, 01/31/2019, 05/14/2020, 10/14/2021.. Findings: Stable appearing small nodular densities and benign-appearing calcifications in both breasts. No new suspicious finding. Scattered fibroglandular densities MM/[place] [id number] Impression: BI-RADS: 2-Benign FOLLOW-UP: 1 Year Follow-up This mammogram was also analyzed by the Computer Aided Detection System R2 Imag e Hat Marker.
== END 2022-12-18 11:40 | disposition home or self-care (01) ==
PROVIDERS: PCP Family Medicine; Visit Provider Family Medicine
DX: Z12.31 Encounter for screening mammogram for malignant neoplasm of breast (principal)
CPT/HCPCS: 77063; 77067

== ENCOUNTER → 2023-01-07 14:21 | Outpatient (BNVA) | payer MEDICARE, SELFPAY | PROVIDERS: PCP Family Medicine; Visit Provider Internal Medicine Cardiovascular Disease | DX: R07.9 Chest pain, unspecified (principal); I10 Essential (primary) hypertension; I48.91 Unspecified atrial fibrillation; M51.17 Intervertebral disc disorders with radiculopathy, lumbosacral region; K21.9 Gastro-esophageal reflux disease without esophagitis; Z87.891 Personal history of nicotine dependence | CPT/HCPCS: 99214; Q3014 ==

== ENCOUNTER → 2023-01-18 10:33 | Outpatient (BNVA) | payer MEDICARE, SELFPAY | PROVIDERS: PCP Family Medicine; Visit Provider Family Medicine | DX: Z15.01 Genetic susceptibility to malignant neoplasm of breast (principal); Z80.3 Family history of malignant neoplasm of breast | CPT/HCPCS: 81162 ==

== ENCOUNTER → 2023-03-01 13:05 | Outpatient (BNVA) | payer MEDICARE, SELFPAY | PROVIDERS: PCP Family Medicine; Visit Provider Student in an Organized Health Care Education/Training Program | DX: M17.11 Unilateral primary osteoarthritis, right knee (principal) | CPT/HCPCS: 73560; 73565; 99204 ==

== ENCOUNTER → 2023-03-02 09:43 | Outpatient (BNVA) | payer MEDICARE, SELFPAY | PROVIDERS: PCP Family Medicine; Visit Provider Clinical Nurse Specialist Adult Health | DX: I10 Essential (primary) hypertension (principal) | CPT/HCPCS: 80048; 85025 ==

== ENCOUNTER 2023-03-03 14:07 | Outpatient (CLI) | payer MEDICARE, SELFPAY ==
--- NOTE | 2023-03-03 14:00 | CT_ITS ---
WS: [id number] CT RIGHT KNEE, NONCONTRAST TECHNIQUE: Noncontrast CT of the RIGHT knee to include the RIGHT hip and ankle. CLINICAL INFORMATION: RIGHT TKA-PER [facility] PROTOCOL COMPARISON: None. DLP: 984.[address] scans at [facility] use at least one of these dose optimization techniques: automated e xposure control; mA and/or kV adjustment per patient size (includes targeted exams where dose is matc hed to clinical indication); or iterative reconstruction. FINDINGS: Prior postoperative changes LEFT TKA. Moderate to advanced tricompartmental arthritis RIGHT knee wors e in the medial joint compartment with subchondral sclerosis. Hypertrophic changes along the joint li ne. Hypertrophic patella. Moderate suprapatellar effusion. Osteopenia. Partially visualized postopera tive changes in the lower RIGHT lumbar spine. Mild degenerative arthritis both hips. Sigmoid divertic ulosis. CT/CT knee RT [facility] IMPRESSION: Images obtained for preoperative purposes.
== END 2023-03-03 14:08 | disposition home or self-care (01) ==
LOC: RAD 14:09
PROVIDERS: PCP Family Medicine; Visit Provider Student in an Organized Health Care Education/Training Program
DX: Z01.818 Encounter for other preprocedural examination (principal); M17.11 Unilateral primary osteoarthritis, right knee
CPT/HCPCS: 73700

== ENCOUNTER 2023-03-17 12:37 | Observation (INO) | payer MEDICARE, SELFPAY ==
[2023-03-10 10:29] VITALS: BMI 29.9
[2023-03-10 11:23] LABS: Add Urine Microscopic? NO; Charge for UA Resulting for Rev
[2023-03-10 11:31] LABS: Bilirubin Urine Neg (Negative); Blood Urine Neg (Negative); Glucose Urine UA Norm (Normal); Ketones Urine Negative (Negative); Leukocyte Esterase Urine Negative (Negative); Nitrate Urine Negative (Negative); Protein Urine Neg (Negative); Urine Appearance Clear (CLEAR); Urine Color Yellow (Yellow); Urobilinogen Urine Neg (Negative); pH Urine 7 (5-7)
--- NOTE | 2023-03-10 15:30 | P.ANESASSM_ITS ---
Pre-Anesthetic Assessment Height/Weight: Height 1.65 m Weight 81.647 kg Operation Date: 03/17/23 10:30 Proposed Procedures p right total knee arthroplasty with assisted DEEJAY: [id number],M17.11(Right) - Catracho Snow DO Familial anesthetic complications: none Was Beta Mono taken within 24 hours: Yes Was Clonidine taken within 24 hours: Yes Social No alcohol and No tobacco Exam alert, oriented x 3, clear to auscultation bilaterally and regular rate & rhythm Airway Submandibular: within normal limits Cervical ROM: within normal limits Mallampati: Class II Dentition: false CV/HEM Hypertension GI Gastroesophageal Reflux Disease Metabolic Morbid Obesity [facility] [place] Lower Back Pain and Osteoarthritis/DJD Anesthetic Plan ASA status: 3 Anesthesia: Regional (specify below) (SAB with adductor blk) Medications/Allergies Home Medications Medication Instructions Recorded Confirmed Last Taken Type clonidine HCl 0.1 mg tablet 0.1 mg PO TID PRN hypertensive 01/11/20 03/10/23 Unknown Rx emergency #30 tabs metoprolol tartrate 25 mg tablet 12.5 mg PO BID #90 tabs 07/06/22 03/10/23 03/10/23 Rx clobetasol 0.05 % topical cream 1 applic topical DAILY PRN Rash 01/07/23 03/10/23 03/10/23 History pantoprazole 40 mg tablet,delayed 40 mg PO DAILY #90 tabs 01/11/23 03/10/23 Unknown Rx release (Protonix) tramadol 50 mg tablet 50 mg PO DAILY PRN pain 30 days 01/11/23 03/10/23 Unknown Rx #30 tabs acetaminophen 500 mg tablet 1,000 mg PO BID PRN pain 03/02/23 03/10/23 03/10/23 History cholecalciferol (vitamin D3) 125 2,000 unit PO QAM 03/02/23 03/10/23 03/10/23 History mcg (5,000 unit) capsule ibuprofen 200 mg capsule 400 mg PO BID PRN pain 03/02/23 03/10/23 Unknown History Allergies Allergy/AdvReac Type Severity Reaction Status Date / Time insect venom Allergy Intermediate swelling Verified 03/10/23 10:24 at the site of sting adhesive tape AdvReac Mild RASH IF Verified 03/10/23 10:24 LEFT ON TOO LONG lisinopril AdvReac ADR-Cough Verified 03/10/23 10:24 [facility] Anesthesia Medical History (Updated 03/02/23 @ 13:00 by Christopher Solorio NP) Atrial fibrillation Transient A-fib. Not present on EKGs since 2014. Essential (primary) hypertension GERD (gastroesophageal reflux disease) Intervertebral disc disorder with radiculopathy of lumbosacral region Lumbar stenosis with neurogenic claudication Vitamin D deficiency Surgical History H/O esophagogastroduodenoscopy (09/26/20) H/O hernia repair H/O lumpectomy H/O: hysterectomy History of appendectomy History of cholecystectomy History of colonoscopy (~2014) History of knee replacement (~03/2012) Left S/P cataract surgery Family History Mother Diabetes Father Pancreatic cancer Sister Pancreatic cancer Cancer breast cancer-sister Social History (Updated 03/02/23 @ 09:21 by Christopher Solorio NP) Smoking and tobacco status: former smoker Quit status (tobacco): has quit using tobacco Former quit date comment: stopped more than 40 years ago Second hand smoke exposure: No Alcohol intake: current Alcohol intake frequency: 0-2 Drinks per Day Alcohol type: wine Marital status: / Current occupational status: retired Data Anesthesia Urine 03/10/23 Range/Units Unknown Urine Color Yellow (Yellow) Urine Appearance Clear (CLEAR) Urine pH 7 (5-7) Ur Specific [place] 1.010 (1.005-1.030) Urine Protein Neg (Negative) Urine Glucose (UA) Norm (Normal) Urine Ketones Negative (Negative) Urine Nitrate Negative (Negative) Urine Bilirubin Neg (Negative) Ur Leukocyte Esterase Negative (Negative) Blood Bank 03/10/23 Unknown Blood Type B Negative Rho(D) Type Negative Antibody Screen Not Reportable Cardiac Studies: No Data to Display
[2023-03-17] VITALS (14 sets, daily range): BP systolic 121–187; BP diastolic 60–107; PULSE 63–86; RESP 15–17; TEMP 36.1–36.6; O2SAT 93–99
--- NOTE | 2023-03-17 09:27 | W.PM.OPSUD ---
Surgery/Procedure H&P Update DATE OF PROCEDURE: March 17, 2023 DATE H&P PERFORMED: 03/01/23 CHANGES TO PREVIOUS DOCUMENTATION: None. Patient's been cleared from surgery from her preoperative clinic. Preoperative labs reviewed and patient's been cleared by anesthesia to proceed with surgical intervention. No changes in her HPI prior to this procedure overall she is in good health today with no illnesses. All questions have been answered at this time. She understands the risk benefits complication alternatives of surgery and agrees to proceed with right total knee arthroplasty Avni robotic assisted. PREOP DIAGNOSIS: Right knee degenerative joint disease PRIMARY INDICATION FOR PROCEDURE: Right knee degenerative joint disease failed conservative treatment PLANNED PROCEDURE: Operation Date: 03/17/23 10:20 Proposed Procedures p right total knee arthroplasty with assisted AVNI: [id number],M17.11(Right) - Catracho Snow DO
[2023-03-17] MEDS: lactated ringers 500 ML IV (09:52)
[2023-03-17] MEDS: ketorolac 30 mg/mL INJ IVP (09:53)
[2023-03-17] MEDS: acetaminophen 1,000 MG/100 ML PIGGYBACK 400 MG IV ×2 (09:53→18:29)
[2023-03-17] MEDS: ceFAZolin 2,000 MG in sodium chloride 0.9% (plus) 50 ML 100 MG IV ×2 (10:09→17:56)
[2023-03-17] MEDS: sodium chloride 0.9% 1,000 ML 30 ML IV (10:35)
--- NOTE | 2023-03-17 10:53 | P.ANESUD_ITS ---
Pre-Anesthetic Update Pre-Anesthetic Assessment: Date of Surgery/Procedure: 03/17/23 Preop Lisa gnosis: Right knee degenerative joint disease Proposed Procedure: Operation Date: 03/17/23 10:20 Proposed Procedures p right total knee arthroplasty with assisted DEEJAY: 23775,M17.11(Right) - Catracho Mayaguez, DO Any changes to Pre-Anesthetic Assessment?: No Last Intake: Intake Last Liquid Date 03/16/23 Last Liquid Time 22:00 Last Solid Date 03/16/23 Last Solid Time 19:30 Vitals: Temperature 97.8 F 03/17/23 09:25 Temperature Source Temporal Artery S can 03/17/23 09:25 Pulse Rate 68 03/17/23 09:25 Pulse Rhythm Regular 03/17/23 09:34 Pulse Strength 3+ Normal 03/17/23 09:34 Respiratory Rate 16 03/17/23 09:25 Blood Pressure 187/107 03/17/23 09:25 Blood Pressure Niya n 133 03/17/23 09:25 Pulse Oximetry 96 03/17/23 09:25 Oxygen Delivery Me thod Room Air 03/17/23 09:34 Exam: Pre-Anes Outpt Exam: alert, oriented x 3, clear to auscultation bilaterally and regular rate & rhythm Cardiac Studies: No Data to Display Anesthesia Procedures Nerve Block: Nerve Block 1: Main Anesthesia: spinal anesthesia block Time Out Performed: Yes Consent: requested by attending/covering physician, from patient, risks and benefits reviewed and patient agrees to proceed Nerve block location: adductor canal (right) Anesthesia monitors applied: pulse oximetry, EKG, BP cuff and oxygen Nerve block position: supine Anesthetic Used: ropivicaine 0.5% Amount of anesthesia used (mL): 20 Ultrasound used to: recognize landmarks Nerve Stimulator Used?: No Interscalene/Femoral BLK: 4 stimuplex 21 g needle used for position and inplane approach Injection: neg aspiration of heme Patient Tolerated Procedure: well Complications: none
[2023-03-17] MEDS: ketorolac 30 mg/mL INJ XX (10:58)
[2023-03-17] MEDS: tranexamic acid 1,000 mg/10mL SDV 1000 MG XX (10:58)
[2023-03-17] MEDS: EPINEPHrine 1 mg/mL INJ XX (10:58)
--- NOTE | 2023-03-17 11:53 | SUR.OPER ---
1153 FAMILY UPDATED OF SURGICAL STATUS
--- NOTE | 2023-03-17 12:17 | P.OP_ITS ---
Operative Report Date of procedure: March 17, 2023 Pre-op diagnosis: Preop Diagnosis Right knee degenerative joint disease Procedure: Post-op diagnosis: Same Procedure done: Right total knee arthroplasty, cemented?robotic assisted Avni Implants: Paul triathlon size 4 femur? CR cemented [place] triathlon size 4 tibia universal baseplate cemented Paul triathlon asymmetric patella size 29 mm [place] triathlon polyethylene 11 mm Paul cement Surgeon: Catracho Snow DO Estimated blood loss: 40 mL Tourniquet time: 57 minutes IV fluids: 1200 mL Spinal anesthesia Urine output: 300 mL Complications: None Condition: stable Disposition: floor Brief History: Abbie is a pleasant 77-year-old female in my practice with chronic right knee degenerative joint disease.? Patient's failed conservative treatment at this point in time patient's pain has been debilitating and patient's daily living.? We talked about continued conservative approach versus operative intervention for right knee given the [id number] arthritis and tricompartmental degenerative changes would recommend a right total knee arthroplasty as pt has failed conservative treatment.? Patient last received corticosteroid injection which only provided temporary relief this was given over a year ago. Through shared decision making patient would like to proceed with right total knee arthroplasty. ? We talked about continued conservative treatment and surgical intervention as far as the risk benefits complications alternatives surgical and nonsurgical treatment options.? At this point time understanding pts risks with surgery pt agrees to proceed with surgical intervention. Patient's been worked up in her preoperative clinic and is been medically optimized for surgical intervention. Once again? risk with surgery include but are not limited to make it better make it worse blood clot, heart attack, stroke, on the table, infection, injury to nerves or vessels, persistent pain, arthrofibrosis, implant failure, infection.? Understanding these risks patient agrees to proceed with surgical intervention consent was obtained in the office.? All questions answered. Procedure: Patient was seen and evaluated in the preoperative holding area.? Consent was reviewed and signed with patient with plan for right total knee arthroplasty.? All questions answered.? Correct extremities marked.? Patient seen and evaluated by the anesthesia department and once cleared for surgery was taken back to the operative suite.? Patient was placed into a supine position on the OR table.? All bony prominences were well-padded.? Patient was appropriately secured to the bed.? Patient underwent anesthesia per the anesthesia department.? Patient rece ived spinal anesthesia..? A nonsterile tourniquet was applied to the right thigh.? At this point in time a final timeout performed.? Patient received appropriate preoperative antibiotics and TXA. Next the right lower extremity was then prepped and draped in standard orthopedic fashion.?Esmarch tourniquet was used exsanguinate the right lower extremity.? Tourniquet was insufflated to 250 mmHg. A standard anterior incision was made over midline of the knee.? Sharp scalpel excision through skin and subcutaneous tissue full-thickness skin flaps were made.? Fascia was elevated off of the extensor retinaculum was stable with medial parapatellar arthrotomy was then made.? The performed standard sequential releases with standard medial releases patient had a varus deformity.? Visualization of all 3 compartments was found to have eburnated bone in all 3 compartments with osteophyte formation.? Most pronounced medial joint space collapse with [id number] articulation.? Next the the patella was then stuffed laterally and the knee was then flexed.? Checo was placed superiorly and medial around the anterior aspect of the femur this was freed of synovium and I subsequently then placed by 2 femur pins to establish my femur arrays for the Avni robot.? These were then placed bicortically and? femur array was then appropriately secured with appropriate visualization.? Next attention was turned towards the tibial rays.? These were then drilled sequentially bicortically in parallel fashion and intraincisional.? I then placed my guide as well as my tibial array on in place.? This was appropriately secured and had excellent visualization with the Avni robot.? Next the tibial checkpoint as well as femur checkpoint were then placed.? At this point time I then subsequently established my head center as well as my medial lateral malleoli as well as my checkpoints.? Next utilizing standard StrongSteam technology I then mapped out the appropriate points and confirmation points around the femur as well as the tibia in standard fashion.? Once this was then done I then removed all osteophytes in preparation for dynamic testing.? All osteophytes were removed as well as I removed the ACL and PCL was attenuated and insufficient as result this was then subsequently removed as well.? Plan was for an ultracongruent poly which would accommodate for the incompetent PCL.? Anterior horn of the lateral meniscus was excised.? At this point time the knee was brought into full extension and we performed our standard evaluation of our gap balancing stressing? ligaments and extension as well as flexion appropriate adjustments were made to have appropriate gap balancing in both flexion and extension.? Made appropriate adjustments for appropriate gap balancing altering our femoral and tibial cuts.? We get a preoperative plan evaluating our implants which was a size 4 femur and a size 4 tibia.? Next we brought in the StrongSteam robot and sequentially made our femur cuts.? All? bony cuts were then removed.? Finally we made our tibial cut.? Once this was done a standard PCL retractor was then placed into this position I excised the medial and lateral meniscus.? The tibial cut was then subsequently removed all excess bony debris was removed.?? I then utilized a lamina computer engineer and remove the posterior osteophytes.? At this point time sized the tibia and confirmed this was a size 4.? I utilized our blunt probe to establish rotation of tibial implant using StrongSteam robot technology.? Once this was done I then placed my tibia size 4 trial in appropriate position and then subsequently placed tibial pins to hold this into place placed a size 11 mm poly as well as a size 4 femur which was appropriately impacted in place knee was then subsequently brought into extension.? When brought into extension the gaps were perfectly balanced and was stable with varus valgus stress. I was satisfied with this is my final poly. This was stable in full extension mid flexion as well as flexion having symmetrically balance gaps.? This was determined to be the appropriate poly thickness. At this point I was satisfied with these implants these were then verified and opened on the back table size 4 tibia, size 4 femur,? size 11 mm polythickness.? We did confirm appropriate gap balancing and stresses as well as alignment utilizing? StrongSteam and were satisfied with this plan.? ?At this point time with my trials in place I then towel clip the patella everted this made appropriate measurements subsequently utilizing freehand technique performed by patellar resurfacing this was confirmed to be appropriate resection and subsequently sized to be a 29 mm asymmetric patella. my drill peg guides were then clamped and appropriate position and appropriate position in the patella for appropriate tracking and parallel with the joint.? Pegs were drilled trial implant was placed and the knee was then subsequently ranged and found to have excellent patellar tracking.? Femur pegs were then drilled.? ? At this point time all of our trial implants were removed.? All checkpoints as well as guidepins and arrays were removed and appropriate counts made. Satisfied with our tibial placement rotation I then utilized the keel punch and prepped the tibia.? The wound bed? was thoroughly irrigated and dried and prepped for cementation.? Cement was mixed on the back table.? Once cement was ready this was then covered onto the tibia and the tibial baseplate was then impacted and all excess cement was removed.? Next the polyethylene was then impacted into place on the tibial baseplate.? Next cement was placed onto the femur as well as under the femur implants and impacted in to place and all excess cement was extruded.? Knee was taken into full extension? to clear all excess cement was removed.? Warm saline was placed over the joint.? I then towel clip patella and dried for cementation. cemented the patella into place.? This was all clamped and the cement was allowed to cure.? Thorough irrigation performed with pulse lavage.? I then placed my periarticular injection while the cement was curing.? Once cured the knee was taken through range of motion and had excellent stability and gaps balances.? Tourniquet was then deflated.? Once tourniquet was deflated hemostasis satisfactory with electrocautery.? Next I then subsequently closed the capsule with Ethibond suture as well as a running strata fix suture.? Knee was then taken through range of motion 30 times.? Next the skin was then closed in layered fashion of running stratifix sutures of deep and subcutenous tissue and skin.? Skin was then closed in flexion with a running 3-0 strata fix suture.? Miladys were used to close skin.? Incision was covered with OpSite, ABDs soft roll and Cristo wrap.? Patient was then awakened from anesthesia and taken to PACU in stable condition. Disposition: Patient taken to PACU in stable condition will be admitted to the floor for pain control PT/OT weight-bear as tolerated right lower extremity dressing changes as needed, DVT prophylaxis.?Pain control. Patient will receive appropriate postoperative antibiotics. patient will be seen today by the internal medicine team for medical management.? Patient will follow up with the office in 2 weeks.? Patient understands agrees with current plan.? All questions answered.
--- NOTE | 2023-03-17 12:17 | PM.OP2 ---
Brief Operative Note Date of procedure: 03/17/23 Pre-op diagnosis: Right knee degenerative joint disease Post-op diagnosis: same Procedure Done: Right total knee arthroplasty, cemented?Avni robotic assisted Surgeon: Catracho Snow Estimated blood loss (mL): 40 Complications: None Post-op Plan: Patient taken to PACU in stable condition recovering well will be admitted to the floor postoperatively internal medicine consulted for medical management and assistance. Patient will be weightbearing as tolerated PT/OT, postoperative DVT prophylaxis postoperative antibiotics, postoperative TXA, pain control. Will change dressing as needed. Will receive appropriate discharge directions pain medication and DVT prophylaxis postoperatively. Plan for likely discharge home tomorrow. All questions answered. Orthopedics will continue to follow on the floor. Condition: stable Disposition: floor Coding Level of Care Code Acute Code for Krist[facility] Maria
--- NOTE | 2023-03-17 12:17 | PM.PACU ---
PACU note Narrative: Patient taken to PACU in stable condition recovering well pain controlled. Dressing on in place clean dry and intact distal pulses are palpable toes warm well-perfused brisk capillary refill less than 2 seconds compartments are soft and compressible. Unable to assess motor or sensory secondary to spinal anesthesia. We will continue to follow postoperatively on the floor Exam: awake Disposition: admitted
--- NOTE | 2023-03-17 12:21 | XR_ITS ---
WS: [id number] Exam: XR knee RT 1-2V [id number] Date/Time of Exam: 03/17/2023 12:22 PM Reason For Exam: R TKA postop Comparison 03/01/2023. Total right knee prosthesis has been placed and is in excellent position. Postoperative changes in th e adjacent soft tissues. Anterior surgical skin clips are in place. XR/XR knee RT 1-2V [id number] IMPRESSION: 1. Total knee replacement in excellent position.
--- NOTE | 2023-03-17 13:25 | ANE.PACU2 ---
Inpatient post-anesthesia follow up: Airway intact: Yes Vital signs: Temperature 97 F Pulse Rate 74 Respiratory Rate 16 Blood Pressure 136/81 Pulse Oximetry 94 Oxygen Delivery Me thod Room Air Oxygen Flow Rate Fraction of Inspir ed Oxygen Hydration adequate: Yes Nausea and vomiting: No Pain level: 1 Mental status: Baseline
--- NOTE | 2023-03-17 14:45 | P.CONIM_ITS ---
Providers/Reason For Consult Consulting Physician/Specialty*: Internal Medicine Reason for Consult*: Medical Management Requesting Physician: Catracho Snow DO Attending Physician: Catracho Snow DO Primary Care Provider: Fidelia Thomson DO History of Present Illness History of Present Illness Abbie Teresa is a 77 year old female with past medical history significant for osteoarthritis, gastritis, and GERD who presented for elective right knee total arthroplasty. Patient is evaluated postoperatively. She reports the pain is starting to improve after she got pain meds about 15 minutes ago. She is eager to get up with therapy. She reports at baseline she does have some loss of function in her left foot. She denies other complaints. Review of Systems Narrative: A complete review of systems was obtained and is negative except as stated in HPI. Medications/Allergies Home Medications Medication Instructions Recorded Confirmed Last Taken Type clonidine HCl 0.1 mg tablet 0.1 mg PO TID PRN hypertensive 01/11/20 03/10/23 Unknown Rx emergency #30 tabs metoprolol tartrate 25 mg tablet 12.5 mg PO BID #90 tabs 07/06/22 03/17/23 03/17/23 07:00 Rx clobetasol 0.05 % topical cream 1 applic topical DAILY PRN Rash 01/07/23 03/10/23 03/10/23 History pantoprazole 40 mg tablet,delayed 40 mg PO DAILY #90 tabs 01/11/23 03/17/23 03/10/23 Rx release (Protonix) tramadol 50 mg tablet 50 mg PO DAILY PRN pain 30 days 01/11/23 03/17/23 03/15/23 Rx #30 tabs acetaminophen 500 mg tablet 1,000 mg PO BID PRN pain 03/02/23 03/10/23 03/16/23 History cholecalciferol (vitamin D3) 125 2,000 unit PO QAM 03/02/23 03/10/23 03/16/23 History mcg (5,000 unit) capsule ibuprofen 200 mg capsule 400 mg PO BID PRN pain 03/02/23 03/17/23 02/10/23 History Allergies Allergy/AdvReac Type Severity Reaction Status Date / Time insect venom Allergy Intermediate swelling Verified 03/10/23 10:24 at the site of sting adhesive tape AdvReac Mild RASH IF Verified 03/10/23 10:24 LEFT ON TOO LONG lisinopril AdvReac ADR-Cough Verified 03/10/23 10:24 PFSH Acute PFSH: Medical History Atrial fibrillation Transient A-fib. Not present on EKGs since 2014. Essential (primary) hypertension GERD (gastroesophageal reflux disease) Intervertebral disc disorder with radiculopathy of lumbosacral region Lumbar stenosis with neurogenic claudication Vitamin D deficiency Surgical History H/O esophagogastroduodenoscopy (09/26/20) H/O hernia repair H/O lumpectomy H/O: hysterectomy History of appendectomy History of cholecystectomy History of colonoscopy (~2014) History of knee replacement (~03/2012) Left S/P cataract surgery Family History Mother Diabetes Father Pancreatic cancer Sister Pancreatic cancer Cancer breast cancer-sister Social History Smoking and tobacco status: former smoker Quit status (tobacco): has quit using tobacco Former quit date comment: stopped more than 40 years ago Second hand smoke exposure: No Alcohol intake: current Alcohol intake frequency: 0-2 Drinks per Day Alcohol type: wine Substance/Drug Use: never Marital status: / Current occupational status: retired Vitals/I&O/Wt Last Vital Signs Temp 97 F L 03/17/23 12:16 Pulse 74 03/17/23 12:45 Resp 16 03/17/23 12:45 BP 136/81 03/17/23 12:45 Pulse Ox 94 03/17/23 12:45 O2 Del Method Room Air 03/17/23 14:17 03/16/23 03/17/23 03/17/23 22:59 06:59 14:59 Intake Total 1160 / 1160 Output Total 340 / 340 Balance 820 / 820 Physical Exam Narrative: General: Patient is awake and alert. Head: Normocephalic. Atraumatic. EOM intact. Neck: No JVD. Cardiovascular: RRR. No gallops. No murmurs. No peripheral edema. Lungs: Clear to auscultation, no use of accessory muscles, no crackles or wheezes. Skin: No jaundice. No rashes. Abdomen: Normal bowel sounds, abdomen soft and nontender. Genito Urinary: Genital exam not performed since complaints not related. Rectal: Rectal exam not performed since no symptoms indicated blood loss. Extremities: No cyanosis or clubbing. Musculoskeletal: Normal muscle development Neurological: Moves all 4 extremities. No myoclonus. Urinary Catheter Management: Solorzano: Cath Placed During This Visit: yes Urinary Catheter Date of Insertion: 03/17/23 Urinary Catheter Time of Insertion: 10:32 A&P Assessment and plan (1) Osteoarthritis of right knee: Status post right total knee arthroplasty on 03/17 Therapy Multimodal pain control DVT prophylaxis Antibiotics per primary Qualifiers: Osteoarthritis type: primary Qualified Code(s): M17.11 - Unilateral primary osteoarthritis, right knee (2) Essential (primary) hypertension: Restart home clonidine Restart home Lopressor (3) GERD (gastroesophageal reflux disease): Restart pantoprazole Plan DVT prophylaxis: Apixaban Consult Attestations Medical Necessity Statement: Thank you for this consultation. Hospital service will continue to follow while admitted. Coding Level of Care Code Acute Code for [facility] Fwd Diagnoses Osteoarthritis of right knee M17.11 Osteoarthritis type: primary Essential (primary) hypertension I10 GERD (gastroesophageal reflux disease) K21.9
[2023-03-17] MEDS: oxyCODONE 5 mg IR Tab/Cap PO (14:47)
[2023-03-17] MEDS: lactated ringers 1,000 ML 100 ML IV (14:47)
[2023-03-17] MEDS: ketorolac 30 mg/mL INJ 15 MG IVP (14:49)
[2023-03-17] MEDS: iron polysaccharide complex 150 mg Capsule PO (17:45)
[2023-03-17] MEDS: metoprolol tartrate 25 mg Tablet 12.5 MG PO (17:45)
[2023-03-17] MEDS: docusate sodium 100 mg Capsule PO (17:45)
[2023-03-17] MEDS: chlorhexidine gluconate 0.12% Btl 473 mL 30 ML MUCOUS MEM ×2 (17:56→21:27)
[2023-03-17] MEDS: calcium carbonate 500 mg Chew Tablet 1000 MG PO (17:57)
[2023-03-17] MEDS: mupirocin oint 22 gm 1 APPLIC NASAL (18:05)
[2023-03-18 00:03] VITALS: RESP 17; O2SAT 98
[2023-03-18] MEDS: oxyCODONE 5 mg IR Tab/Cap PO ×2 (00:03→09:06)
[2023-03-18] MEDS: ketorolac 30 mg/mL INJ 15 MG IVP (00:04)
[2023-03-18] MEDS: acetaminophen 1,000 MG/100 ML PIGGYBACK 400 MG IV ×2 (02:06→10:29)
[2023-03-18] MEDS: ceFAZolin 2,000 MG in sodium chloride 0.9% (plus) 50 ML 100 MG IV ×2 (02:25→11:03)
[2023-03-18 04:50] LABS: Basophils # 0.1 10^3/uL (0.0-0.1); Eosinophils # 0.3 10^3/uL (0.0-0.8); Eosinophils % 2.7 %; Hemoglobin 12.9 g/dL (11.5-15.3); Lymphocytes # 2.2 10^3/uL (0.8-4.8); Lymphocytes % 21.7 %; Mean Corpuscular HGB Conc 32.3 g/dL (30.0-36.0); Mean Corpuscular Hemoglobin 28.7 pg (28.0-34.0); Mean Corpuscular Volume 88.9 fl (81-99); Mean Platelet Volume 10.4 fL (7.4-10.4); Monocytes # 0.7 10^3/uL (0.2-0.9); Monocytes % 6.7 %; Neutrophils # 6.84 10^3/uL (1.8-7.7); Neutrophils % 67.5 %; Nucleated Red Blood Cells % 0 %; Platelet Count 222 10^3/cmm (130-400); Red Cell Distribution Width 12.5 % (12.1-15.1); White Blood Count 10.1 10^3/uL (4.0-10.0)
[2023-03-18 05:08] LABS: Anion Gap 12.1 (5-19); Blood Urea Nitrogen 12 mg/dL (8-23); Carbon Dioxide 25 mmol/L (22-29); Chloride 103 mmol/L (98-107); Creatinine Clr Calc Pharmacy 61.1712; Glucose 113 mg/dL (65-115); Osmolality Calculated 283 mOsm/kg (285-295); Potassium 4.1 mmol/L (3.5-5.1); Sodium 136 mmol/L (136-145)
[2023-03-18 05:10] VITALS: BP 137/84; PULSE 79; RESP 16; TEMP 36.6; O2SAT 98
[2023-03-18] MEDS: lactated ringers 1,000 ML 100 ML IV (05:47)
[2023-03-18 09:06] VITALS: RESP 18; O2SAT 93
[2023-03-18] MEDS: multivitamin therapeutic Tablet 1 TAB PO (09:06)
[2023-03-18] MEDS: cholecalciferol (vitamin D3) 1,000 unit Tablet 1000 UNIT PO (09:06)
[2023-03-18] MEDS: iron polysaccharide complex 150 mg Capsule PO (09:08)
[2023-03-18] MEDS: metoprolol tartrate 25 mg Tablet 12.5 MG PO (09:09)
[2023-03-18] MEDS: apixaban 5 mg Tablet 2.5 MG PO (09:10)
[2023-03-18] MEDS: pantoprazole DR 40 mg Tablet PO (09:11)
[2023-03-18 09:20] VITALS: BP 144/71; PULSE 79; RESP 16; TEMP 36.7; O2SAT 93
--- NOTE | 2023-03-18 11:16 | PC.NURSE ---
This nurse called Dr. Bejarano and reported Dr. Snow put a note in pt chart that pt needs to be cleared by internal medicine before discharge. Dr. Bejarano reported that he saw pt yesterday and from his standpoint she is clear to go home.
[2023-03-18 12:15] VITALS: BP 138/78; PULSE 82; RESP 18; TEMP 36.6; O2SAT 93
--- NOTE | 2023-03-18 12:18 | PM.DCS ---
Discharge Providers Date of Admission: 03/17/23 12:37 Date of Discharge: March 18, 2023 Attending Provider at Admission: Catracho nSow DO Attending Provider at Discharge: Catracho Snow DO Consults: Dr. Bejarano hospitalist-internal medicine Primary Care Provider: Fidelia Thomson DO Diagnoses at Discharge Discharge Diagnosis (1) Osteoarthritis of right knee: Status: Resolved Qualifiers: Osteoarthritis type: primary Qualified Code(s): M17.11 - Unilateral primary osteoarthritis, right knee (2) Essential (primary) hypertension: Status: Chronic (3) GERD (gastroesophageal reflux disease): Status: Acute Reason for Visit Reason for Visit: M17.11 Brief History: Right total knee arthroplasty?Avni robotic assisted Hospital Course Hospital Course Patient presented to the preoperative holding area with plan for right total knee arthroplasty after patient has been worked up in the outpatient setting for failed conservative treatment of right knee degenerative joint disease.? Once cleared by anesthesia for surgery patient subsequently was taken back to the operative suite she underwent spinal anesthesia and then subsequently underwent a right total knee arthroplasty.? Procedure was performed without any complications patient was taken to PACU in stable condition patient? recovered well in PACU and then was admitted to the floor postoperatively internal medicine was consulted and on board for medical management and assistance with care.? Patient received appropriate PT/OT, postoperative antibiotics, postoperative TXA, pain control, postoperative DVT prophylaxis.? Elevation and ice.? Patient encouraged for knee range of motion allowed weightbearing as tolerated to the right lower extremity.? Dressing was changed as needed her labs were monitored daily.? Patient recovered well postoperatively and worked well and progressed well with therapy.? It was determined on postoperative day 1 the patient was stable for discharge from an orthopedic standpoint as well as internal medicine standpoint.? Patient was comfortable with discharge and plan was discharged home.? Patient received appropriate discharge instruction as well as pain medication and DVT prophylaxis postoperatively.? Given appropriate instructions for her dressing management.? Patient will follow-up with Dr. Snow/orthopedics in the office in 2 weeks.? All questions answered.? Understand if there is any issues questions or concerns and contact the office. Physical Exam Narrative: Examination of the right lower extremity: Dressing on in place clean dry and intact dressing not taken down. Compartments are soft and compressible calves are soft and nontender patient is able to wiggle toes plantarflex and dorsiflex ankle sensation intact to light touch distally. Distal pulses are palpable toes warm well-perfused brisk cap refill less than 2 seconds.patient is able to tolerate gentle knee range of motion at bedside and able to perform straight leg raise. Urinary Catheter Management: Solorzano: Cath Placed During This Visit: yes, but has since been removed by the nurse Reason for Continuing Indwelling Catheter: Decision to DC Catheter Urinary Catheter Date of Insertion: 03/17/23 Urinary Catheter Time of Insertion: 10:32 Date Urinary Catheter Removed: 03/17/23 Time Urinary Catheter Discontinued: 18:40 Discharge Data Studies Completed and Pending Completed Studies During Hospitalization Category Date Time Status XR knee RT 1-2V [id number] Routine Exams 03/17/23 12:21 Completed Pending at discharge Category Date Time Status Basic Metabolic Panel AM LABS Lab 03/19/23 04:00 Ordered Basic Metabolic Panel AM LABS Lab 03/20/23 04:00 Ordered Basic Metabolic Panel Routine Lab 03/10/23 10:18 Uncollected Complete Blood Count w/Auto AM LABS Lab 03/19/23 04:00 Ordered Complete Blood Count w/Auto AM LABS Lab 03/20/23 04:00 Ordered Complete Blood Count w/Auto Routine Lab 03/10/23 10:18 Uncollected Radiology Impressions Knee X-Ray 03/17/23 12:21 IMPRESSION: 1. Total knee replacement in excellent position. Laboratory Results WBC 10.1 10^3/uL (4.0-10.0) H 03/18/23 04:40 RBC 4.50 10^6/uL (4.1-5.3) 03/18/23 04:40 Hgb 12.9 g/dL (11.5-15.3) 03/18/23 04:40 Hct 40.0 % (37.0-47.0) 03/18/23 04:40 MCV 88.9 fl (81-99) 03/18/23 04:40 MCH 28.7 pg (28.0-34.0) 03/18/23 04:40 MCHC 32.3 g/dL (30.0-36.0) 03/18/23 04:40 RDW 12.5 % (12.1-15.1) 03/18/23 04:40 Plt Count 222 10^3/cmm (130-400) 03/18/23 04:40 MPV 10.4 fL (7.4-10.4) 03/18/23 04:40 Neut % (Auto) 67.5 % 03/18/23 04:40 Lymph % (Auto) 21.7 % 03/18/23 04:40 [place] % (Auto) 6.7 % 03/18/23 04:40 Eos % (Auto) 2.7 % 03/18/23 04:40 Baso % (Auto) 1.0 % 03/18/23 04:40 Neut # (Auto) 6.84 10^3/uL (1.8-7.7) 03/18/23 04:40 Lymph # (Auto) 2.2 10^3/uL (0.8-4.8) 03/18/23 04:40 [place] # (Auto) 0.7 10^3/uL (0.2-0.9) 03/18/23 04:40 Eos # (Auto) 0.3 10^3/uL (0.0-0.8) 03/18/23 04:40 Baso # (Auto) 0.1 10^3/uL (0.0-0.1) 03/18/23 04:40 Nucleated RBC % (auto) 0 % 03/18/23 04:40 Nucleated RBCs # 0.0 /100WBC 03/18/23 04:40 Sodium 136 mmol/L (136-145) 03/18/23 04:40 Potassium 4.1 mmol/L (3.5-5.1) 03/18/23 04:40 Chloride 103 mmol/L (98-107) 03/18/23 04:40 Carbon Dioxide 25 mmol/L (22-29) 03/18/23 04:40 Anion Gap 12.1 (5-19) 03/18/23 04:40 BUN 12 mg/dL (8-23) 03/18/23 04:40 Creatinine 0.6 mg/dL (0.5-0.9) 03/18/23 04:40 GFR Calculation Not Reportable 03/18/23 04:40 Glucose 113 mg/dL (65-115) 03/18/23 04:40 Calculated Osmolality 283 mOsm/kg (285-295) L 03/18/23 04:40 Calcium 8.0 mg/dL (8.5-10.5) L 03/18/23 04:40 Urine Color Yellow (Yellow) 03/10/23 Unknown Urine Appearance Clear (CLEAR) 03/10/23 Unknown Urine pH 7 (5-7) 03/10/23 Unknown Ur Specific Butler 1.010 (1.005-1.030) 03/10/23 Unknown Urine Protein Neg (Negative) 03/10/23 Unknown Urine Glucose (UA) Norm (Normal) 03/10/23 Unknown Urine Ketones Negative (Negative) 03/10/23 Unknown Urine Blood Neg (Negative) 03/10/23 Unknown Urine Nitrate Negative (Negative) 03/10/23 Unknown Urine Bilirubin Neg (Negative) 03/10/23 Unknown Urine Urobilinogen Neg mg/dL (Negative) 03/10/23 Unknown Ur Leukocyte Esterase Negative (Negative) 03/10/23 Unknown Blood Type B Negative 03/17/23 09:50 Rho(D) Type Negative 03/17/23 09:50 Antibody Screen Not Reportable 03/10/23 Unknown PEG Antibody Screen Negative 03/17/23 09:50 Procedures Performed Right total knee arthroplasty Avni robotic assisted Vitals Last Vital Signs Temp 98.1 F 03/18/23 09:20 Pulse 79 03/18/23 09:20 Resp 16 03/18/23 09:20 BP 144/71 03/18/23 09:20 Pulse Ox 93 03/18/23 09:20 O2 Del Method Room Air 03/18/23 09:20 Discharge Plan Discharge Patient Disposition: Home Condition: Stable Prescriptions: New Colace 100 mg capsule 100 mg PO DAILY PRN (Reason: constipation) 10 Days Qty: 10 0RF ondansetron 4 mg tablet,disintegrating 4 mg PO DAILY 5 Days Qty: 5 0RF oxycodone 5 mg tablet 5 mg PO Q6H PRN (Reason: pain) 7 Days Qty: 28 0RF Eliquis 2.5 mg tablet 2.5 mg PO BID 14 Days Qty: 28 0RF Continued acetaminophen 500 mg tablet 1,000 mg PO BID PRN (Reason: pain) cholecalciferol (vitamin D3) 125 mcg (5,000 unit) capsule 2,000 unit PO QAM clonidine HCl 0.1 mg tablet 0.1 mg PO TID PRN (Reason: hypertensive emergency) Qty: 30 0RF Rx Instructions: Take if BP is greater than 160/90 every 8 hours as needed metoprolol tartrate 25 mg tablet 12.5 mg PO BID Qty: 90 3RF pantoprazole [Protonix] 40 mg tablet,delayed release (DR/EC) 40 mg PO DAILY Qty: 90 1RF tramadol 50 mg tablet 50 mg PO DAILY PRN (Reason: pain) 30 Days Qty: 30 5RF clobetasol 0.05 % cream 1 applic topical DAILY PRN (Reason: Rash) Discontinued ibuprofen 200 mg capsule 400 mg PO BID PRN (Reason: pain) Discharge Orders: Discharge Order (Routine); Ordered 03/18/23 Ordered By: Catracho Snow Referrals: Vern Quinn FNP [Physician [employer]] - 04/01/23 9:30 am Discharge Diet: Advance as tolerated Discharge Activity: Increase activity as tolerated Patient Instructions: Laxative, Stool Softeners (By mouth), Oxycodone, Rapid Release (By mouth), Ondansetron (By mouth), Apixaban (By mouth) (Eliquis), Precautions after Total Joint Replacement Surgery (DC), Knee Replacement (DC), OB Discharge Report, OB Food/Drug Interaction Guide, Opioid Safety, Post Operative Pain Activity Restrictions/Additional Instructions: Orthopedic discharge instructions: Patient may be weightbearing as tolerated to the right lower extremity Ice and elevate as needed for pain and swelling Encourage knee range of motion Leave Cristo bandage and dressing on for 48 to 72 hours at that time may take dressing down. Leave white OpSite bandage on in place for 7 days after that may remove and rinse incision with warm soapy water pat dry and redress with a dry dressing no baths or soaks. [place] are on and in place and at the skin and keep incision clean dry and intact. contact the office for any questions Take pain medication as prescribed Take antinausea medication as needed Take Colace stool softener for constipation if needed Take Eliquis (blood thinner) for blood clot prevention for 2 weeks as prescribed Follow-up with Dr. Snow in the office in 2 weeks Contact the office for any questions or concerns Discharge Attestations Time Spent in Discharge Care*: greater than 30 min Quality Metrics Clinical Quality Measures [ No reported AMI, CVA or VTE this stay] Coding Level of Care Code Acute Code for [facility] Fwd Diagnoses Osteoarthritis of right knee M17.11 Osteoarthritis type: primary Essential (primary) hypertension I10 GERD (gastroesophageal reflux disease) K21.9
== END 2023-03-18 12:20 | disposition home or self-care (01) ==
LOC: OBGYN 12:38
PROVIDERS: Admitting Provider Student in an Organized Health Care Education/Training Program; PCP Family Medicine; Visit Provider Student in an Organized Health Care Education/Training Program
PROC: 8E0Y0CZ Robotic Assisted Procedure of Lower Extremity, Open Approach (ICD-10-PCS; CPT 27447; principal; 2023-03-17 09:50)
DX: M17.11 Unilateral primary osteoarthritis, right knee (principal); I10 Essential (primary) hypertension; K21.9 Gastro-esophageal reflux disease without esophagitis; E66.01 Morbid (severe) obesity due to excess calories; Z68.30 Body mass index [BMI] 30.0-30.9, adult; Z79.899 Other long term (current) drug therapy; Z87.891 Personal history of nicotine dependence; Z96.652 Presence of left artificial knee joint
CPT/HCPCS: 27447; 36415; 51702; 73560; 80048; 81003; 85025; 86850; 86900; 96374; 97110; 97116; 97161; 97165; C1713; C1776; G0378; J0131; J0171; J0690; J1885; J2250; J2704; J2795; J7030; J7120

== ENCOUNTER → 2023-04-01 09:47 | Outpatient (BNVA) | payer MEDICARE, SELFPAY | PROVIDERS: PCP Family Medicine; Visit Provider Nurse Practitioner Family | DX: Z96.651 Presence of right artificial knee joint (principal); M54.30 Sciatica, unspecified side; M17.11 Unilateral primary osteoarthritis, right knee | CPT/HCPCS: 73560; 73565; 99213 ==

== ENCOUNTER → 2023-04-30 10:04 | Outpatient (BNVA) | payer MEDICARE, SELFPAY | PROVIDERS: PCP Family Medicine; Visit Provider Nurse Practitioner Family | DX: Z96.651 Presence of right artificial knee joint (principal) | CPT/HCPCS: 73560; 73565; 99024 ==

== ENCOUNTER → 2023-06-10 10:16 | Outpatient (BNVA) | payer MEDICARE, SELFPAY | PROVIDERS: PCP Family Medicine; Visit Provider Family Medicine | DX: I10 Essential (primary) hypertension (principal) | CPT/HCPCS: 80053; 80061; 82043; 85025 ==

== ENCOUNTER 2023-07-12 08:28 | Outpatient (RCR) | payer MEDICARE, SELFPAY | END 2023-07-22 23:59 | disposition home or self-care (01) | LOC: SPT 08:28 | PROVIDERS: PCP Family Medicine; Visit Provider Family Medicine | DX: H81.11 Benign paroxysmal vertigo, right ear (principal) | CPT/HCPCS: 95992; 97161 ==

== ENCOUNTER → 2023-07-15 13:42 | Outpatient (BNVA) | payer MEDICARE, SELFPAY | PROVIDERS: PCP Family Medicine; Visit Provider Internal Medicine Cardiovascular Disease | DX: R07.9 Chest pain, unspecified (principal); I10 Essential (primary) hypertension; I48.91 Unspecified atrial fibrillation; K21.9 Gastro-esophageal reflux disease without esophagitis; R06.02 Shortness of breath; Z87.891 Personal history of nicotine dependence | CPT/HCPCS: 93005; 99214 ==

== ENCOUNTER → 2023-07-15 13:55 | Outpatient (BNVA) | payer MEDICARE, SELFPAY | PROVIDERS: PCP Family Medicine; Visit Provider Internal Medicine Cardiovascular Disease | DX: R07.9 Chest pain, unspecified (principal); K21.9 Gastro-esophageal reflux disease without esophagitis | CPT/HCPCS: 93005 ==

== ENCOUNTER → 2023-07-29 10:43 | Outpatient (BNVA) | payer MEDICARE, SELFPAY | PROVIDERS: PCP Family Medicine; Visit Provider Nurse Practitioner Family | DX: Z96.651 Presence of right artificial knee joint | CPT/HCPCS: 99213 ==

== ENCOUNTER → 2023-10-22 10:46 | Outpatient (BNVA) | payer MEDICARE, SELFPAY | PROVIDERS: PCP Family Medicine; Visit Provider Family Medicine | DX: Z78.0 Asymptomatic menopausal state (principal); Z11.59 Encounter for screening for other viral diseases; Z00.00 Encounter for general adult medical examination without abnormal findings | CPT/HCPCS: 86803 ==

== ENCOUNTER 2023-10-29 15:26 | Outpatient (CLI) | payer MEDICARE, SELFPAY ==
--- NOTE | 2023-10-29 15:30 | XR_ITS ---
WS: [id number] SCREENING DEXA SCAN [employer] CLINICAL INFORMATION: postmenopausal COMPARISON: None. FINDINGS: The LEFT forearm bone mineral density measures 0.681. This corresponds to a T score score of -2.2 and Z score of 0.4. Left femoral neck bone mineral density measures 0.769 g/cm2. This corresponds to a T score of -1.9 an d Z score of -0.4. Right femoral neck bone mineral density measures 0.754 g/cm2. This corresponds to a T score -2.0of an d Z score of -0.5. Mean femoral neck bone mineral density measures 0.761 g/cm2. This corresponds to a T score of -2.0 an d Z score of -0.4. IMPRESSION: Osteopenia LEFT forearm. Osteopenia femoral necks. Patient's FRAX calculated 10 year probability for major osteoporotic fracture is 16.8% and osteoporotic hip fracture is 5.4%.
== END 2023-10-29 15:27 | disposition home or self-care (01) ==
LOC: RAD 15:27
PROVIDERS: PCP Family Medicine; Visit Provider Family Medicine
DX: Z78.0 Asymptomatic menopausal state (principal); M85.832 Other specified disorders of bone density and structure, left forearm
CPT/HCPCS: 77080

== ENCOUNTER 2024-01-11 10:39 | Outpatient (CLI) | payer MEDICARE, SELFPAY ==
--- NOTE | 2024-01-11 11:00 | MM_ITS ---
WS: [id number] BILATERAL 3D TOMOSYNTHESIS DIGITAL SCREENING MAMMOGRAPHY WITH CAD CLINICAL INFORMATION: SCREENING HISTORY: Screening mammogram. No current complaints. COMPARISON: 2022 TECHNIQUE: Bilateral CC and MLO views. FINDINGS: Scattered fibroglandular densities bilaterally. No suspicious focal mass, asymmetry, calcifications, or architectural distortion. No evidence of malignancy. Vascular calcification. A few incidental punc rodriguez and clustered calcifications. IMPRESSION: MM/[place] [id number] BI-RADS: 2-Benign FOLLOW UP: 1 Year Follow-up Recommend return to annual screening mammography.
== END 2024-01-11 10:40 | disposition home or self-care (01) ==
LOC: MOBLMAM 10:51
PROVIDERS: PCP Family Medicine; Visit Provider Family Medicine
DX: Z12.31 Encounter for screening mammogram for malignant neoplasm of breast (principal); R92.323 Mammographic fibroglandular density, bilateral breasts
CPT/HCPCS: 77063; 77067

== ENCOUNTER 2024-01-18 09:04 | Outpatient (RCR) | payer MEDICARE, SELFPAY | END 2024-01-20 23:59 | disposition home or self-care (01) | LOC: SPT 09:04 | PROVIDERS: PCP Family Medicine; Visit Provider Family Medicine | DX: H81.12 Benign paroxysmal vertigo, left ear (principal) | CPT/HCPCS: 95992; 97161 ==

== ENCOUNTER → 2024-01-19 09:04 | Outpatient (BNVA) | payer MEDICARE, SELFPAY | PROVIDERS: PCP Family Medicine; Visit Provider Nurse Practitioner Family | DX: I10 Essential (primary) hypertension (principal); Z87.891 Personal history of nicotine dependence | CPT/HCPCS: 99213 ==

== ENCOUNTER → 2024-03-28 12:33 | Outpatient (BNVA) | payer MEDICARE, SELFPAY | PROVIDERS: PCP Family Medicine; Visit Provider Family Medicine | DX: R63.5 Abnormal weight gain (principal); Z13.6 Encounter for screening for cardiovascular disorders; M25.50 Pain in unspecified joint | CPT/HCPCS: 80053; 84443; 85025; 85651; 86038; 86140; 86200; 86431 ==

== ENCOUNTER → 2024-05-09 14:26 | Outpatient (BNVA) | payer MEDICARE, SELFPAY | PROVIDERS: PCP Family Medicine Adult Medicine; Visit Provider Podiatrist Foot & Ankle Surgery | DX: M79.671 Pain in right foot (principal); G89.29 Other chronic pain; M76.821 Posterior tibial tendinitis, right leg | CPT/HCPCS: 73630; 99203 ==

== ENCOUNTER → 2024-06-06 13:41 | Outpatient (BNVA) | payer MEDICARE, SELFPAY | PROVIDERS: PCP Family Medicine Adult Medicine; Visit Provider Podiatrist Foot & Ankle Surgery | DX: M76.821 Posterior tibial tendinitis, right leg (principal) | CPT/HCPCS: 99213 ==

== ENCOUNTER 2024-06-12 06:00 | Outpatient (RCR) | payer MEDICARE, SELFPAY | END 2024-06-21 23:59 | disposition home or self-care (01) | LOC: TPT 06:00 | PROVIDERS: Visit Provider Podiatrist Foot & Ankle Surgery | DX: M76.821 Posterior tibial tendinitis, right leg (principal) | CPT/HCPCS: 97110; 97140; 97161; 97530 ==

== ENCOUNTER 2024-06-22 06:00 | Outpatient (RCR) | payer MEDICARE, SELFPAY | END 2024-07-22 23:59 | disposition home or self-care (01) | LOC: TPT 06:00 | PROVIDERS: Visit Provider Podiatrist Foot & Ankle Surgery | DX: M79.671 Pain in right foot (principal); M62.81 Muscle weakness (generalized); R26.89 Other abnormalities of gait and mobility | CPT/HCPCS: 97110; 97530 ==

== ENCOUNTER → 2024-07-04 10:00 | Outpatient (BNVA) | payer MEDICARE, SELFPAY | PROVIDERS: PCP Family Medicine Adult Medicine; Visit Provider Internal Medicine Cardiovascular Disease | DX: I10 Essential (primary) hypertension (principal); R07.9 Chest pain, unspecified | CPT/HCPCS: 99213 ==

== ENCOUNTER 2024-08-02 13:28 | Outpatient (CLI) | payer MEDICARE, SELFPAY ==
--- NOTE | 2024-08-02 13:46 | XRR_ITS ---
PROCEDURE INFORMATION: Exam: XR Abdomen Exam date and time: 08/02/2024 1:51 PM Age: 79 years old Clinical indication: Generalized; Prior surgery; Surgery date: 6+ months; Surgery type: Hysterectomy, gb, l4-5 fusion; Patient HX: Abdominal pain x 2 weeks, shooting pains into chest when bending over TECHNIQUE: Imaging protocol: Radiologic exam of the abdomen. Views: 3 or more views. COMPARISON: CT abdomen pelvis w con* [id number] 04/11/2021 10:41 AM FINDINGS: Heart/Mediastinum: Cardiomegaly. Lungs are clear. Gastrointestinal tract: No abnormally dilated bowel loops or distinct pneumoperitoneum. Intraperitoneal space: See Gastrointestinal tract finding. Organs: No organomegaly, mass, or abnormal calcification. Bones/joints: No acute osseous or soft tissue abnormality. XR/XR abdomen 3V [id number] IMPRESSION: 1. No acute abnormality in the chest and abdomen. 2. Mild cardiomegaly.
== END 2024-08-02 13:29 | disposition home or self-care (01) ==
LOC: RAD 13:29
PROVIDERS: PCP Family Medicine Adult Medicine; Visit Provider Nurse Practitioner
DX: R10.9 Unspecified abdominal pain (principal); I51.7 Cardiomegaly
CPT/HCPCS: 74021; 81000

== ENCOUNTER 2024-08-30 08:51 | Outpatient (CLI) | payer MEDICARE, SELFPAY ==
--- NOTE | 2024-08-30 09:00 | CTR_ITS ---
PROCEDURE INFORMATION: Exam: CT Chest Without and With Contrast; Diagnostic Exam date and time: 08/30/2024 9:39 AM Age: 79 years old Clinical indication: Abdominal pain; Prior surgery; Surgery date: 6+ months; Surgery type: Hyst, hernia, RT lumpectomy, gb, appy, l4-l5 fusion; Patient HX: Weight gain, bloating x 6 months. Upper abd pain that radiates into back and goes into chest. TECHNIQUE: Imaging protocol: Diagnostic computed tomography of the chest without and with contrast. Radiation optimization: All CT scans at this facility use at least one of these dose optimization techniques: automated exposure control; mA and/or kV adjustment per patient size (includes targeted exams where dose is matched to clinical indication); or iterative reconstruction. Contrast material: OMNI 350; Contrast volume: 100 ml; Contrast route: INTRAVENOUS (IV); COMPARISON: CR XR chest 1V portable [id number] 04/11/2021 9:58 AM RADIATION DOSE METRICS: Total DLP (mGy-cm): 1324.16 FINDINGS: Thyroid: The visualized thyroid gland is normal. Trachea: The central airways are patent. Lungs: Background of mild centrilobular emphysema. Pleural spaces: No significant pleural effusion. No pneumothorax. Heart: The heart is enlarged. No pericardial effusion. Coronary arteries: There are moderate coronary artery calcifications. Lymph nodes: No enlarged lymph nodes by size criteria. Vasculature: The aorta demonstrates moderate atherosclerotic calcification. The aorta is normal in caliber. No aneurysm. No evidence of aortic dissection. Bones/joints: The spine demonstrates mild degenerative changes at multiple levels. Soft tissues: Soft tissues are unremarkable as visualized. PROCEDURE INFORMATION: Exam: CT Abdomen And Pelvis Without And With Contrast Exam date and time: 08/30/2024 9:39 AM Age: 79 years old Clinical indication: Abdominal pain; Prior surgery; Surgery date: 6+ months; Surgery type: Hyst, hernia, RT lumpectomy, gb, appy, l4-l5 fusion; Patient HX: Weight gain, bloating x 6 months. Upper abd pain that radiates into back and goes into chest. TECHNIQUE: Imaging protocol: Computed tomography of the abdomen and pelvis without and with contrast. Radiation optimization: All CT scans at this facility use at least one of these dose optimization techniques: automated exposure control; mA and/or kV adjustment per patient size (includes targeted exams where dose is matched to clinical indication); or iterative reconstruction. Contrast material: OMNI 350; Contrast volume: 100 ml; Contrast route: INTRAVENOUS (IV); COMPARISON: CT abdomen pelvis w con* [id number] 04/11/2021 10:41 AM RADIATION DOSE METRICS: Total DLP (mGy-cm): 1324.16 FINDINGS: Tubes, catheters and devices: Status post L4-L5 right posterior fusion and interbody disc spacer. Liver: Multiple liver subcentimeter hypodensities which are too small to characterize. Gallbladder and biliary ducts: There has been a cholecystectomy. No biliary ductal dilatation. Pancreas: The pancreas is unremarkable. Spleen: The spleen is unremarkable. Adrenal glands: Bilateral nodular adrenal hyperplasia. Kidneys and ureters: Bilateral simple renal cysts are present, as well as other subcentimeter hypodensities which are too small to characterize. Stomach and bowel: Colonic diverticulosis without evidence of diverticulitis. There is no bowel wall thickening. No bowel obstruction. Appendix: Appendix is not identified. No findings to suggest acute appendicitis. Intraperitoneal space: No significant peritoneal free fluid. No free peritoneal air. Vasculature: No evidence of intramural hematoma on precontrast images. The vasculature demonstrates diffuse moderate atherosclerotic calcification. No aneurysm. No evidence of aortic dissection. Lymph nodes: No enlarged lymph nodes by size criteria. Urinary bladder: There is diffuse bladder wall thickening. Reproductive: Status post hysterectomy. There is a 2.4 x 3.9 x 2.2 cm cystic structure at the vaginal cuff, likely a peritoneal inclusion cyst. Bones/joints: The spine demonstrates mild degenerative changes at multiple levels. Soft tissues: Soft tissues are unremarkable as visualized. Other findings: Postsurgical changes of the mid lower back. [facility] [place] [id number] IMPRESSION: 1. Mild centrilobular emphysema. 2. No acute findings. 3. No aortic dissection or aneurysm. IMPRESSION: 1. Diffuse bladder wall thickening, suggestive of cystitis. 2. Otherwise, no acute findings. 3. 3.9 cm cystic structure at the vaginal cuff, likely a peritoneal inclusion cyst. COMMENTS: Consistent with the [employer]'s Incidental Findings Committee white paper (J Am Keri Radiol 2018): Any incidental renal lesion less than 1 cm or classified as too small to characterize, or any incidental cystic renal lesion characterized as simple-appearing, is likely benign. No follow-up imaging is recommended for these lesions per consensus recommendations based on imaging criteria.
[2024-08-30 10:04] LABS: Blood Urea Nitrogen 7 mg/dL (8-23)
== END 2024-08-30 08:52 | disposition home or self-care (01) ==
LOC: RAD 08:52
PROVIDERS: PCP Family Medicine Adult Medicine
DX: R10.9 Unspecified abdominal pain (principal); N89.8 Other specified noninflammatory disorders of vagina; Z98.1 Arthrodesis status; Z90.49 Acquired absence of other specified parts of digestive tract; Z90.710 Acquired absence of both cervix and uterus
CPT/HCPCS: 71260; 74178; 82565; 84520

== ENCOUNTER → 2024-09-07 16:09 | Outpatient (BNVA) | payer MEDICARE, SELFPAY | PROVIDERS: PCP Family Medicine Adult Medicine; Visit Provider Family Medicine Adult Medicine | DX: R10.9 Unspecified abdominal pain (principal) | CPT/HCPCS: 81000; 87086 ==

== ENCOUNTER 2024-10-05 11:25 | Outpatient (CLI) | payer MEDICARE, SELFPAY ==
--- NOTE | 2024-10-05 11:45 | MRR_ITS ---
PROCEDURE INFORMATION: Exam: MR Right Lower Extremity Joint Without Contrast; Ankle Exam date and time: 10/05/2024 11:37 AM Age: 79 years old Clinical indication: Pain; Ankle; Right; Additional info: Ankle pain worsening / tendon tear TECHNIQUE: Imaging protocol: Magnetic resonance imaging of the right lower extremity without contrast. Exam focused on the ankle. COMPARISON: CR XR foot RT min 3V* [id number] 05/09/2024 2:31 PM FINDINGS: Bones/joints: Normal bone marrow signal. No focal osseous lesion . Note made of patchy bone marrow edema in the medial talus from dome to the posterior subtalar joint. Mild increased osseous edema in the sustentaculum talus. Mild cartilage thinning in the medial talar dome, with mild underlying increased patchy osseous edema. Scattered moderate to severe degenerative change of the cuboid-5th metatarsal joint, and at the middle and lateral cuneiform metatarsal joints. Type 2 accessory navicular ossicle, with mild subchondral cystic change at the synchondrosis. LIGAMENTS: Distal tibiofibular syndesmosis: Unremarkable. No tear. Anterior talofibular ligament: Unremarkable. No tear. Posterior talofibular ligament: Unremarkable. No tear. Calcaneofibular ligament: Unremarkable. No tear. Deltoid ligament complex: Unremarkable. No tear. Spring ligament complex: The superomedial band of the spring ligament is not distinctly seen, suspect severely thinned or ruptured. There is mild-moderate increased soft tissue edema in the region. TENDONS: Flexor tendons of foot: Normal-size and signal. Mild tenosynovitis of the flexor digitorum longus. Tibialis posterior tendon: Normal-size and signal. Mild tenosynovial fluid. Peroneal tendons: Unremarkable as visualized. Extensor tendons of foot: Unremarkable as visualized. Tibialis anterior tendon: Unremarkable as visualized. Achilles tendon: Unremarkable as visualized. Tarsal canal (Sinus tarsi): Mild increased edema/ fat signal replacement. Trace fluid within the sinus tarsi. Tarsal tunnel: Unremarkable. Soft tissues: Mild diffuse subcutaneous edema of the imaged right lower extremity.. Plantar fascia: Plantar fascia is unremarkable. MR/MR ankle RT wo con* [id number] IMPRESSION: 1. High-grade partial tear of the (superomedial band of the) spring ligament. 2. Increased edema/replaced fat signal in the sinus tarsi, as can be seen with sinus tarsi syndrome. Recommend correlation. 3. Mild tenosynovitis of the posterior tibial and flexor digitorum tendons. 4. Mild cartilage thinning in the medial talar dome. Suspect tiny full-thickness fissuring, which may account for patchy osseous edema in the medial talus extending from dome to base.
== END 2024-10-05 11:26 | disposition home or self-care (01) ==
LOC: RAD 11:28
PROVIDERS: PCP Family Medicine Adult Medicine; Visit Provider Podiatrist Foot & Ankle Surgery
DX: S93.401A Sprain of unspecified ligament of right ankle, initial encounter (principal); M76.829 Posterior tibial tendinitis, unspecified leg; S99.911A Unspecified injury of right ankle, initial encounter; X58.XXXA Exposure to other specified factors, initial encounter
CPT/HCPCS: 73721

== ENCOUNTER → 2024-10-16 14:55 | Outpatient (BNVA) | payer MEDICARE, SELFPAY | PROVIDERS: PCP Family Medicine Adult Medicine; Visit Provider Podiatrist Foot & Ankle Surgery | DX: M76.821 Posterior tibial tendinitis, right leg | CPT/HCPCS: 99213 ==

== ENCOUNTER 2024-12-07 06:00 | Outpatient (CLI) | payer MEDICARE, SELFPAY | END 2024-12-07 23:59 | disposition home or self-care (01) | LOC: SPT 12-08 08:46 | PROVIDERS: Visit Provider Podiatrist Foot & Ankle Surgery | DX: Z46.89 Encounter for fitting and adjustment of other specified devices (principal); S93.401D Sprain of unspecified ligament of right ankle, subsequent encounter; X58.XXXD Exposure to other specified factors, subsequent encounter | CPT/HCPCS: 97760; L1902 ==

== ENCOUNTER 2025-02-07 13:49 | Outpatient (CLI) | payer MEDICARE, SELFPAY ==
--- NOTE | 2025-02-07 14:00 | MM_ITS ---
WS: [id number] BILATERAL SCREENING DIGITAL TOMOSYNTHESIS MAMMOGRAM WITH CAD HISTORY: SCREENING COMPARISON: 01/11/2024, 12/18/2022, 10/14/2021 Bilateral CC and MLO views with tomosynthesis and synthetic mammography submitted. Computer aided detection analyzed. Breast composition: There are scattered areas of fibroglandular density. No suspicious masses, microcalcifications or architectural distortion. Scattered benign calcifications within each breast. MM/MM scr tomosynthesis [id number] IMPRESSION: BI-RADS: 2 - Benign. FOLLOW UP: 1 Year Follow-up
== END 2025-02-07 13:50 | disposition home or self-care (01) ==
PROVIDERS: PCP Family Medicine; Visit Provider Family Medicine
DX: Z12.31 Encounter for screening mammogram for malignant neoplasm of breast (principal); R92.323 Mammographic fibroglandular density, bilateral breasts; R92.1 Mammographic calcification found on diagnostic imaging of breast
CPT/HCPCS: 77063; 77067

== ENCOUNTER 2025-05-27 17:38 | Emergency (ER) | payer MEDICARE, SELFPAY ==
--- OUTSIDE RECORDS SUMMARY | 2024-05-17 12:01 | XMS_ITS | Continuity of Care Document ---
Author Organization [facility] Address [address] [place] [address] Phone Care Team Providers Care Staff Midwife Name Role Phone Ramin SALEH MD, Jarocho Unavailable Unavailabl e Advance Directives Directive Yes / No Effective Date File Name No Information Encounters Encounter Description Practice Location Reason(s) For Visit Diagnoses Date Provider Providers Copied on Encounter [facility], [address], [place], [address], [place] tel:[phone] [place] CVM No Information Ramin Avendaño. [facility] , [address], [place], [place], [id number], [place]. tel:[phone] Family History Family Member Type Diagnosis Age At Onset No Information Payers Payer name Insurance type Covered libertarian ID Authoriza tion(s) No Information Social History Type Description Quantity Date Captured Comments Sex Female Smoking Status No Information Chief Complaint And Reason For Visit No Information Reason For Referral Reason For Referral No Information History Of Present Illness Encounter Date Complaint History Of Prese nt Illness No Information Functional Status Date Functional Assessmen t No Information Instructions Date Instruction Additional Infor mation No Information Assessments Type Assessment Date No Information Patient Care Teams Name Effective Dates (start - stop) Status Members No Information
--- OUTSIDE RECORDS SUMMARY | 2024-10-11 12:00 | XMS_ITS ---
Author Organization [facility] Address [address] [place] [address] Care Team Providers Care Collar Stitcher Name Role Phone Roger Peralta MD Primary Care Provider Unavailab Mac Contreras Unavailable [phone] REASON FOR VISIT Bladder Wall Thickening Encounters Encounter Location Date Provider Diagnosis [facility] [address] [place] [facility] [place] [address] 10/11/2024 Mac Umaña Plan Of Treatment No Information Progress Notes * Lisa TERESARodríguezOB: 4 (80 yo F)Acc No.[id number]:10/11/2024 Progress Notes Patient: Abbie FLEMING Provider: Leon Umaña APRN :1945 A ge:79 Y S ex:Female Date:10/11/2024 Address:[address] [place], [place] [id number] Pcp:Roger Peralta MD Subjective: * Chief Complaints: * 1 . Bladder Wall Thickening. * Medical History: Objective: * Vitals: Assessment: Plan: * Treatment: * Billing Information: * Visit Code: * Procedure Codes: * Electronic signature of Gary Umaña APRN on 05/27/2025 at 05:51 PM CDT Sign off status: Pending * Provider: Leon Umaña APRN Date: 12/11/2023 Generated for Printi ng/Faxing/eTransmitting on: 0 05/27/2025 05:51 PM CDT
[2025-05-27] VITALS (8 sets, daily range): BP systolic 146–194; BP diastolic 74–110; PULSE 68–91; RESP 17–20; TEMP 36.8; O2SAT 90–96; BMI 31.8
--- OUTSIDE RECORDS SUMMARY | 2025-05-27 17:51 | XMS_ITS | Patient Health Record ---
Author Organization [facility] Address [address] [place] [address] Care Team Providers Care Vamp Maker Name Role Phone Roger Peralta MD Primary Care Provider Unavailab Mac Contreras Unavailable [phone] ABHAY BELL Unavailable [phone] Reason For Referral No Information Medications Medication SIG (Take, Route, Frequency, Duration) Notes Start Date End Date Status Protonix Protonix *Pick strength-form from Medispan for eRX* 09/20/2018 Active Lisinopril Lisinopril *Pick strength-form from [employer] for eRX* 09/20/2018 Active Immunizations Vaccine Route Administration Date Status Comme nts Influenza (whole), CPT 40223 Inactive Unknown 09/20/2018 Administered Problems Problem Type SNOMED Code ICD Code Onset Dates Problem Status W/U Status Risk Notes Problem 75775915 Other chest pain (786.59) 10/24/2012 Active confirmed [id number] 3- Encounters Encounter Location Date Provider Diagnosis [facility] [address] [place] [address] 09/11/2024 ABHAY BELL Plan Of Treatment No Information Insurance Providers Payer Name Payer Address Payer Phone Subscriber Number Group Number Insured Name Patient Relationship to Insured Coverage Start Date Coverage End Date [employer] Medicare Replacemen t [address] [facility], [place] [id number] Abbie Teresa Self - patient is the insured
--- OUTSIDE RECORDS SUMMARY | 2025-05-27 17:51 | XMS_ITS | Clinical Summary ---
Author Organization [facility] de Address [address] [place] [address] Phone Care Team Providers Care Gear Inspector Name Role Phone Unavailable Primary Care Provider Unavailabl e Allergies No known active allergies Medications Dexlansoprazole (KAPIDEX) 30 mg Oral delayed release capsule Take 30 mg by mouth daily. Active TOPAMAX 25 mg Oral Tab Take 2 Tabs by mouth 2 times daily. One tablet at night for 1stweek; one tablet at morning, one tablet at night for 2nd week; one tablet at morning, two tablet at evening for 3rd week; then two tablet at morning, two tablet at evening. 120 Tab 1 08/28/2009 Active Social History Tobacco Use Types Packs/Day Years Used Date Smoking Tobacco: Never Alcohol Use Standard Drinks/Week Comments Yes 0.8 (1 standard drink = 0.6 oz p ure alcohol) Comments No Sex and Gender Information Value Date Recorded Sex Assigned at Not on file Legal Sex Female 7:26 AM [employer] Gender Identity Not on file Sexual Orientation Not on file Last Filed Vital Signs Vital Sign Reading Time Taken Comments Blood Pressure 126/84 08/28/2009 9:55 AM CDT Pulse 76 08/28/2009 9:55 AM CDT Temperature - - Respiratory Rate - - Oxygen Saturation - - Inhaled Oxygen Concentration - - Weight 81.6 kg (180 lb) 08/28/2009 9:55 AM CDT Height - - Body Mass Index - - Plan of Treatment Health Maintenance Due Date Last Done Comments DTAP/TDAP/TD VACCINES (1 - Tdap) 1963 PNEUMOCOCCAL VACCINE 50+ YEARS (1 of 1 - PCV) 05/03/19 94 ZOSTER VACCINE (1 of 2) 1994 OSTEOPOROSIS SCREENING 2009 RSV VACCINE (60+ or ) (1 - 1-dose 75+ series) 2019 INFLUENZA VACCINE (#1) 2025 Insurance RR [address] [place]ER [id number] MEDICARE PART A AND B
--- NOTE | 2025-05-27 18:04 | XRR_ITS ---
PROCEDURE INFORMATION: Exam: XR Chest Exam date and time: 05/27/2025 6:10 PM Age: 80 years old Clinical indication: Pain; Chest pressure; Prior surgery; Surgery date: 6+ months; Surgery type: Lumpectomy; Additional info: Chest pain TECHNIQUE: Imaging protocol: Radiologic exam of the chest. Views: 1 view. COMPARISON: [place] [id number] 08/30/2024 9:39 AM FINDINGS: Lungs: Unremarkable. No consolidation. Pleural spaces: Unremarkable. No pleural effusion. No pneumothorax. Heart/Mediastinum: Unremarkable. No cardiomegaly. Bones/joints: Unremarkable. XR/XR chest 1V portable [id number] IMPRESSION: No acute findings.
--- NOTE | 2025-05-27 18:04 | ECG_ITS ---
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
[2025-05-27 18:10] LABS: Hematocrit 45.9 % (36-47); Hemoglobin 15.30 g/dL (11.27-16.99); Mean Corpuscular HGB Conc 33.3 g/dL (30-55); Mean Corpuscular Hemoglobin 29.5 pg (27-33); Mean Corpuscular Volume 88.6 fl (85-98); Nucleated Red Blood Cells % 0 %; Platelet Count 277 10^3/cmm (157-399); Red Blood Count 5.18 10^6/uL (3.85-5.65); White Blood Count 7.62 10^3/uL (3.29-11.43)
--- NOTE | 2025-05-27 18:14 | CTR_ITS ---
PROCEDURE INFORMATION: Exam: CT Chest With Contrast; Diagnostic Exam date and time: 05/27/2025 6:52 PM Age: 80 years old Clinical indication: Shortness of breath; Chest pressure; Prior surgery; Surgery date: 6+ months; Surgery type: Lumpectomy; C/O chest and upper back pain with SOB. ; Additional info: Chest/back pain; Also eval t spine-injury? TECHNIQUE: Imaging protocol: Diagnostic computed tomography of the chest with contrast. Radiation optimization: All CT scans at this facility use at least one of these dose optimization techniques: automated exposure control; mA and/or kV adjustment per patient size (includes targeted exams where dose is matched to clinical indication); or iterative reconstruction. Contrast material: OMNI 350; Contrast volume: 100 ml; Contrast route: INTRAVENOUS (IV); COMPARISON: [place]/w [id number] 08/30/2024 9:39 AM RADIATION DOSE METRICS: Total DLP (mGy-cm): 476 FINDINGS: Lungs: No focal consolidations. Pleural spaces: Unremarkable. No pneumothorax. No pleural effusion. Heart: Unremarkable. No cardiomegaly. No pericardial effusion. Coronary arteries: Coronary arterial atherosclerotic calcifications are present. Lymph nodes: Unremarkable. No enlarged lymph nodes. Vasculature: No pulmonary emboli. Gallbladder and biliary ducts: The gallbladder is absent. Bones/joints: No fracture. Soft tissues: Unremarkable. CT/CT chest w con* [id number] IMPRESSION: 1. No pulmonary emboli. 2. No focal consolidations. 3. No fracture. The thoracic spine disc spaces are maintained.
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
[2025-05-27 18:25] LABS: Troponin(5th) Baseline < 6 ng/L (0-10)
[2025-05-27] MEDS: ondansetron 2 mg/ML SDV 2 mL 4 MG IVP (18:27)
[2025-05-27] MEDS: metoprolol tartrate 1 mg/1 mL SDV 5 mL 5 MG IVP (18:28)
[2025-05-27 18:45] LABS: Alanine Aminotransferase 11 U/L (0-33); Albumin Level 4.5 g/dL (3.5-5.2); Alkaline Phosphatase 68 U/L (35-105); Anion Gap 17.0 (5-19); Aspartate Amino Transferase 15 U/L (0-32); Blood Urea Nitrogen 9 mg/dL (8-23); Calcium 9.4 mg/dL (8.5-10.5); Carbon Dioxide 25 mmol/L (22-29); Chloride 102 mmol/L (98-107); Creatinine Clr Calc Pharmacy 55.8082; Globulin 2.5 g/dL (1.3-4.6); Glucose 102 mg/dL (65-115); Osmolality Calculated 289 mOsm/kg (285-295); Potassium 4.0 mmol/L (3.5-5.1); Sodium 140 mmol/L (136-145); Total Protein 7.0 g/dL (6.6-8.7)
[2025-05-27] MEDS: iohexol 350 mg/mL 500 mL Btl (per mL) IV (18:52)
[2025-05-27 20:07] LABS: Troponin 5 2HR < 6.0 ng/L (0-10); Troponin 5 2HR Delta 0 ABS# (0-10)
== END 2025-05-27 20:48 | disposition home or self-care (01) ==
PROVIDERS: Emergency Provider Physician Assistant; PCP Family Medicine
DX: M54.6 Pain in thoracic spine (principal); Z87.891 Personal history of nicotine dependence; I10 Essential (primary) hypertension
CPT/HCPCS: 36415; 71045; 71260; 80053; 84484; 85025; 93005; 93010; 96374; 96375; 99285; J1885; J2405; J3490; J9999

== ENCOUNTER 2025-05-29 15:11 | Outpatient (CLI) | payer MEDICARE, SELFPAY ==
--- NOTE | 2025-05-29 15:17 | XRR_ITS ---
PROCEDURE INFORMATION: Exam: XR Left Hip Exam date and time: 05/29/2025 3:22 PM Age: 80 years old Clinical indication: Hip pain; Left hip; Prior surgery; Surgery date: 6+ months; Surgery type: Hysterectomy; Lt hip joint pain x 3-4 months; Additional info: Left hip pain TECHNIQUE: Imaging protocol: Radiologic exam of the left hip. Views: 2 or 3 views hip with pelvis when performed. COMPARISON: CT abdomen pelvis w con* [id number] 04/11/2021 10:41 AM FINDINGS: Bones/joints: Mild degenerative changes of the left hip joint. No dislocation. No acute fracture or traumatic malalignment. The visualized left hemipelvis appears intact. Soft tissues: Unremarkable. XR/XR hip LT 2-3V wo/w pel* [id number] IMPRESSION: As above.
== END 2025-05-29 15:12 | disposition home or self-care (01) ==
LOC: RAD 15:13
PROVIDERS: PCP Family Medicine; Visit Provider Family Medicine
DX: M16.12 Unilateral primary osteoarthritis, left hip (principal)
CPT/HCPCS: 73502

== ENCOUNTER → 2025-06-12 08:03 | Outpatient (BNVA) | payer MEDICARE, SELFPAY | PROVIDERS: PCP Family Medicine; Visit Provider Physician Assistant | DX: M70.62 Trochanteric bursitis, left hip (principal) | CPT/HCPCS: 99213 ==

== ENCOUNTER 2025-08-28 10:33 | Outpatient (CLI) | payer MEDICARE, SELFPAY ==
--- NOTE | 2025-08-28 10:41 | XR_ITS ---
WS: [id number] Cervical spine, 3 views, 08/28/2025 Clinical Data: chronic neck pain Comparison: Cervical spine, 05/07/2014 Findings: No compression fractures are seen. There is degenerative disc narrowing at C3-C4, C5-C6 and C6-C7. Minimal osteophytes are present C5-C7. There is no prevertebral soft tissue swelling. The odontoid is unremarkable. The soft tissues of the neck and the lung apices are normal. XR/XR cervical spine 3V* [id number] Impression: 1. Degenerative disc narrowing at multiple levels. 2. 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
== END 2025-08-28 10:34 | disposition home or self-care (01) ==
PROVIDERS: PCP Family Medicine; Visit Provider Family Medicine
DX: M50.31 Other cervical disc degeneration, high cervical region (principal); M50.322 Other cervical disc degeneration at C5-C6 level; M50.323 Other cervical disc degeneration at C6-C7 level; M47.812 Spondylosis without myelopathy or radiculopathy, cervical region
CPT/HCPCS: 72040

== ENCOUNTER → 2025-09-12 08:36 | Outpatient (BNVA) | payer MEDICARE, SELFPAY | PROVIDERS: PCP Family Medicine; Visit Provider Physician Assistant | DX: M70.62 Trochanteric bursitis, left hip (principal) | CPT/HCPCS: 99213 ==

== ENCOUNTER → 2025-09-17 13:02 | Outpatient (BNVA) | payer MEDICARE, SELFPAY | PROVIDERS: PCP Family Medicine; Visit Provider Anesthesiology Pain Medicine | DX: M47.812 Spondylosis without myelopathy or radiculopathy, cervical region (principal); G89.29 Other chronic pain | CPT/HCPCS: 99204 ==

== ENCOUNTER → 2025-09-24 13:14 | Outpatient (BNVA) | payer MEDICARE, SELFPAY | PROVIDERS: PCP Family Medicine; Visit Provider Anesthesiology Pain Medicine | DX: M79.18 Myalgia, other site (principal); M47.812 Spondylosis without myelopathy or radiculopathy, cervical region; G89.29 Other chronic pain | CPT/HCPCS: 20553; 99213; J1010; J3490 ==

== ENCOUNTER 2025-10-15 14:34 | Outpatient (RCR) | payer MEDICARE, SELFPAY | END 2025-10-21 23:59 | disposition home or self-care (01) | LOC: TPT 14:34 | PROVIDERS: PCP Family Medicine; Visit Provider Anesthesiology Pain Medicine | DX: M54.2 Cervicalgia (principal); G89.29 Other chronic pain | CPT/HCPCS: 97110; 97161 ==